=== PATIENT | male | born 1960 | race Caucasian/White ===

== ENCOUNTER → 2017-10-10 09:33 | Outpatient (CLI) | payer BC, SELFPAY | PROVIDERS: Visit Provider Internal Medicine | DX: I10 Essential (primary) hypertension (principal); E78.5 Hyperlipidemia, unspecified; I25.10 Atherosclerotic heart disease of native coronary artery without angina pectoris; Z95.5 Presence of coronary angioplasty implant and graft ==

== ENCOUNTER → 2017-11-14 10:32 | Outpatient (CLI) | payer BC, SELFPAY ==
[2017-11-14 13:16] LABS: Alanine Aminotransferase 78 U/L (12-78); Albumin Level 3.9 gm/dL (3.4-5.0); Alkaline Phosphatase 110 U/L (46-116); Aspartate Amino Transferase 46 U/L (15-37); Bilirubin,Direct 0.1 mg/dL (0.0-0.2); Bilirubin,Total 0.6 mg/dL (0.2-1.0); Chol/HDL Ratio 4.9 (1-3.5); Cholesterol 175 mg/dL (140-200); HDL Cholesterol 36 mg/dL (27-67); LDL Cholesterol 98 mg/dL (0-130); Total Protein,Serum 6.9 gm/dL (6.4-8.2); Triglycerides 204 mg/dL (30-200); VLDL Cholesterol 41 mg/dL (0-40)
== END ==
PROVIDERS: PCP Family Medicine; Visit Provider Internal Medicine
DX: I10 Essential (primary) hypertension (principal); I25.10 Atherosclerotic heart disease of native coronary artery without angina pectoris; Z87.891 Personal history of nicotine dependence; Z95.5 Presence of coronary angioplasty implant and graft; E78.4 Other hyperlipidemia
CPT/HCPCS: 36415; 80061; 80076

== ENCOUNTER → 2018-02-21 07:45 | Outpatient (CLI) | payer BC, SELFPAY ==
--- NOTE | 2018-02-21 07:50 | CT_ITS ---
LUNG RADS: EXAM: CT LUNG LOW DOSE WO CONTRAST COMPARISON: Chest film 10/16/2015 HISTORY: Smoke to PACS per day for 30 years equal 60 pack-year . Patient asymptomatic joint no signs or symptoms of lung cancer FINDINGS: No suspicious lung nodule or mass. Benign nodules(Category1)with perhaps 2 tiny indeterminate nodules (category 2).. Follow-up in one year adequate & recommended Most notable are scattered Small calcified granulomas bilaterally:. RIGHT LUNG..: Small 3 mm calcified granuloma axial slice 17, 18 on. Small less than 4 mm calcified granuloma slice 25 posterior R UL on right Axial slice 18.q Small probably partially calcified nodule 4 mm seen on sagittal slice 40, axial 49 at the medial RML LEFT LUNG. Tiny 3 mm probably partially calcified granuloma at lingula axial slice 61. ... Larger 4 mm calcified granuloma anterior L UL axial 42 sagittal 82. ... Small less than 3 mm tiny subpleural nodule axial slice 20. Nonspecific but suspect there may be some subtle early calcification in the suspect favor this is also a small developing granuloma.. Dense calcified granuloma 3.5 mm size is seen at left lung apex axial slice 16 is a small 3.5 mm. LUNG PARENCHYMA Emphysema: Mild centrilobular emphysematous changes . Small bleb at right apex anteriorly adjacent to mediastinum Mild airway thickening reflecting mild chronic airway changes likely mild chronic bronchitis. Airways upper normal diameter towards the lung bases. There are some scattered minimal areas of minor fibrotic scarring periphery the lungs most evident towards the right lung base. Subtle. Unimpressive OTHER ANATOMIC REGIONS Lymph Nodes: No enlarged lymph nodes evident. Scattered small nodes are present in the mediastinum and anel Scattered small to moderate mediastinal lymph nodes. No pathologic adenopathy. No hilar mass nor adenopathy of concern. Calcified left hilar nodes and small calcified precarinal, subcarinal nodes reflecting old granulomatous disease. Pleura: Unremarkable Cardiac: Heart normal size. There is extensive severe coronary artery calcification with likely stents in place as well left main LAD circumflex. Correlation required. . ---IMPRESSION: 1. No suspicious nor worrisome lung lesions. Bilateral follow-up screening CT and one year recommended 2. Lung RADS Category: 2 & 1 ... Scattered small calcified granulomas ... With perhaps - two tiny less than 4 mm nodules which are technically indeterminate but most likely developing granulomas given their relative increased density 3. Mild Emphysematous changes Minimal airway thickening, May reflect mild chronic bronchitis 4. Coronary artery disease.Fairly Extensive coronary calcification with likely stents RECOMMENDATIONS:*... 12 monthd LDCT follow-up ===== NOTE: This study was performed for the specific purposes of lung cancer screening and is not an alternative to diagnostic chest CT. TECHNIQUE: The exam was performed on a GE [facility] Speed [address] scanner using 3.0 mGy CTDI. A low dose helical CT CHEST was performed on a multi-detector scanner. All CT scans at this facility use one or more dose reduction techniques, viz.: automated exposure control; ma/kV adjustment per patient size (including targeted exams where dose is matched to indication; i.e. head) or iterative reconstruction technique. The LDCT was performed in a facility that meets the criteria for the screening program. Data regarding this exam was submitted to [employer] which is an approved registry. The order for this exam indicates that it came as a result of a lung cancer screening counseling shard decision-making visit that included all the elements required of such a visit including smoking cessation. The radiologist interpreting
== END ==
PROVIDERS: PCP Family Medicine; Visit Provider Family Medicine
DX: Z87.891 Personal history of nicotine dependence (principal); Z12.2 Encounter for screening for malignant neoplasm of respiratory organs

== ENCOUNTER 2018-05-24 17:30 | Outpatient (RCR) | payer BC, OTHER, SELFPAY | END 2018-05-24 17:31 | disposition home or self-care (01) | LOC: PT 17:30 | PROVIDERS: PCP Family Medicine; Visit Provider Internal Medicine | DX: Z95.5 Presence of coronary angioplasty implant and graft (principal) | CPT/HCPCS: 93798 ==

== ENCOUNTER → 2018-08-18 08:30 | Outpatient (CLI) | payer OTHER, SELFPAY ==
[2018-08-18 10:00] LABS: Alanine Aminotransferase 57 U/L (12-78); Albumin Level 4.1 gm/dL (3.4-5.0); Alkaline Phosphatase 109 U/L (46-116); Aspartate Amino Transferase 32 U/L (15-37); Bilirubin,Direct 0.2 mg/dL (0.0-0.2); Bilirubin,Indirect 0.7 mg/dL (0.0-0.9); Bilirubin,Total 0.9 mg/dL (0.2-1.0); Chol/HDL Ratio 4.3 (1-3.5); Cholesterol 142 mg/dL (140-200); HDL Cholesterol 33 mg/dL (27-67); LDL Cholesterol 76 mg/dL (0-130); Triglycerides 164 mg/dL (30-200); VLDL Cholesterol 33 mg/dL (0-40)
== END ==
PROVIDERS: PCP Family Medicine; Visit Provider Internal Medicine
DX: I10 Essential (primary) hypertension (principal); I25.10 Atherosclerotic heart disease of native coronary artery without angina pectoris; Z87.891 Personal history of nicotine dependence; Z95.5 Presence of coronary angioplasty implant and graft
CPT/HCPCS: 80061; 80076

== ENCOUNTER 2018-11-19 10:32 | Observation (INO) ==
[2018-11-19 10:52] LABS: Basophils # 0.1 K/mm3 (0-0.2); Basophils % 0.9 % (0.1-2.0); Eosinophils # 0.2 K/mm3 (0.0-0.4); Eosinophils % 1.6 % (0.1-12.0); Hematocrit 47.3 % (42.0-52.0); Lymphocytes # 3.3 K/mm3 (0.7-4.5); Lymphocytes % 28.8 % (10-50); Mean Corpuscular HGB Conc 33.8 g/dL (31.8-35.4); Mean Corpuscular Hemoglobin 30.5 pg (27.0-31.2); Mean Corpuscular Volume 90.4 fl (80-94); Mean Platelet Volume 7.8 fl (7.4-10.4); Monocytes # 0.5 K/mm3 (0.1-1.0); Monocytes % 4.7 % (1.7-9.3); Neutrophils # 7.3 K/mm3 (1.8-7.8); Platelet Count 231 K/mm3 (142-424); Red Blood Count 5.24 M/mm3 (4.60-6.20); Red Cell Distribution Width 12.4 % (11.5-17.5); White Blood Count 11.5 K/mm3 (4.8-10.8)
--- NOTE | 2018-11-19 10:57 | Emergency Department Note ---
ED Disposition Clinical Impression: Angina at rest, Chest pain, Atypical chest pain, Unstable angina pectoris, Stented coronary artery Disposition: Admitted as Observation Condition on Discharge: Good - Critical Care Critical Care Time: No Attestation: On 11/19/18, the high probability of a clinically significant, sudden or life threatening deterioration of the following system(s) required my full and direct attention, intervention and personal management. The time I documented below is in addition to time spent performing reported procedures but includes the following listed in this critical care notation. Medical Decision Making - Medical Records Medical records reviewed: Yes: I reviewed the patient's medical records. - Archie Inquiry Pt receiving controlled substance: No Vital Signs: 11/19/18 10:32 11/19/18 11:23 Temperature 98.8 F Temperature Source Oral Pulse Rate [Left Radial] 71 67 Respiratory Rate 18 Blood Pressure [Right Arm] 139/78 107/67 L Blood Pressure Mean [Right Arm] 98 80 Blood Pressure Source [Right Arm] Automatic Cuff Automatic Cuff Blood Pressure Position [Right Arm] Sitting Sitting 02 Sat by Pulse Oximetry 98 98 Oxygen Delivery Method Room Air Room Air - Lab Data Lab results reviewed: Yes: I reviewed the patient's lab results. Lab Results 11/19/18 10:35: WBC 11.5 H, RBC 5.24, Hgb 16.0, Hct 47.3, MCV 90.4, MCH 30.5, MCHC 33.8, RDW 12.4, Plt Count 231, MPV 7.8, Neut % (Auto) 64.0, Lymph % (Auto) 28.8, [place] % (Auto) 4.7, Eos % (Auto) 1.6, Baso % (Auto) 0.9, Neut # (Auto) 7.3, Lymph # (Auto) 3.3, [place] # (Auto) 0.5, Eos # (Auto) 0.2, Baso # (Auto) 0.1 11/19/18 10:35: Sodium 137, Potassium 4.1, Chloride 99, Carbon Dioxide 28, Anion Gap 14.1, BUN 20 H, Creatinine 1.23, Estimated Creat Clear 93, Estimated GFR 61, Est GFR ( Amer) 73, Glucose 129 H, Calcium 9.3, Troponin I < 0.02 11/19/18 10:35: Total Bilirubin 0.7, Direct Bilirubin 0.2, Indirect Bilirubin 0.5, AST 25, ALT 45, Alkaline Phosphatase 112, Total Protein 7.9, Albumin 4.4 Result diagrams: 11/19/18 10:35 11/19/18 10:35 Orders (Tests/Meds): ED MEDICATIONS Generic Name Dose Route Start Last Admin Trade Name Kareemq PRN Reason Stop Dose Admin Fentanyl Citrate 25 mcg 11/19/18 11:44 Fentanyl 250mcg/5ml Vial IV 11/20/18 11:44 Q3MINP PRN Moderate to Severe Pain Fentanyl Citrate 50 mcg 11/19/18 11:44 Fentanyl 250mcg/5ml Vial IV 11/20/18 11:44 Q3MINP PRN Moderate to Severe Pain Flumazenil 0.2 mg 11/19/18 11:44 Romazicon 0.1mg/Ml 5ml Vial IV 11/19/18 23:00 NEEDED PRN Sedation Midazolam HCl 1 mg 11/19/18 11:44 Midazolam 2mg/2ml Vial IV 11/20/18 11:44 Q3MINP PRN Sedation Midazolam HCl 1 mg 11/19/18 11:44 Midazolam 1mg/Ml 5ml Vial IV 11/20/18 11:44 Q3MINP PRN Sedation Naloxone HCl 0.4 mg 11/19/18 11:44 Narcan 0.4mg/Ml Vial IV 11/20/18 11:44 Q5MINP PRN Decreased respirations Sodium Chloride 10 ml 11/19/18 10:38 Saline Flush 10ml Syringe IV 12/19/18 10:37 NEEDED PRN Maintain IV Site Sodium Chloride 10 ml 11/19/18 11:44 Saline Flush 10ml Syringe IV 12/19/18 11:43 NEEDED PRN Maintain IV Site Discontinued Medications Generic Name Dose Route Start Last Admin Trade Name Kareemq PRN Reason Stop Dose Admin Aspirin 243 mg 11/19/18 10:39 11/19/18 10:42 Aspirin 81mg Chewable Tablet PO 11/19/18 10:40 243 mg ONCE ONE Administration ORDERS Category Date Time Status Consult to Cardiology [CONS] Routine Cons 11/19/18 11:55 Ordered Troponin I Q3H Lab 11/19/18 15:00 Ordered Troponin I Q3H Lab 11/19/18 18:00 Ordered - ECG Data Tracing #1 EKG normal sinus rhythm normal EKG heart rate 68 QRS 84 s axis is 74 EKG essentially unchanged from October 10, 2017 patient was asymptomatic at the time of the EKG ECG initial impression date: 11/19/18 ECG initial impression time: 10:35 Normal Sinus Rhythm: Yes - Core Measures Clinical Trial Participant: No AMI core measures followed: Yes (Patient given aspirin) Medical Decision Narrative: Patient with a strong history of coronary artery disease has several days of intermittent chest pain similar to his previous heart attack of 3 years ago now symptom-free differential diagnosis unstable angina, GERD, esophagitis, non- STEMI, musculoskeletal pain. Patient discussed with cardiology PA for Dr. Mosqueda it was elected that the patient will be admitted under his primary doctor Dr. Desai and go [facility] for further evaluation of his pain. Laboratory studies unremarkable General Adult HPI - General Chief complaint: Chest Pain Stated complaint: chest pain Time Seen by Provider: 11/19/18 10:35 Mode of Arrival: Ambulatory Source of Information: Patient (Patient complains of sharp substernal pain radiating to the right shoulder now relieved by 2 nitroglycerin. 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 He does have a history of GERD and takes medications for it. There was no dyspnea no shortness of breath and he is now pain-free) Limitations: No Limitations Description of Symptoms (Recalled from ER Triage Doc. by RN): Pt reports midsternal chest pain that was sharp in nature and felt like pressure. Pt reports pain radiated to his R shoulder and down his arm. Pt reports he has taken Nitroglycerin x2 and reports is pain free at this time. - History of Present Illness Location: chest Severity: moderate Exacerbating factors: none Associated symptoms: denies other symptoms - Related Data Home Medications Medication Instructions Recorded Confirmed gabapentin 600 mg tablet 600 mg PO TID 11/10/17 11/19/18 nitroglycerin 0.4 mg sublingual 0.4 mg SUBLINGUAL Q5M PRN 11/10/17 11/19/18 tablet Aspirin [Low Dose Aspirin EC] 81 mg PO DAILY 11/19/18 11/19/18 Clopidogrel Bisulfate [Plavix 75mg 75 mg PO QDAY 01/28/19 01/28/19 Tab] Furosemide [Furosemide 40MG tAB] 40 mg PO DAILY 11/19/18 11/19/18 Isosorbide Mononitrate [Imdur 30mg 30 mg PO QAM 11/19/18 11/19/18 ER tablet] Losartan Potassium [Cozaar] 100 mg PO DAILY 11/19/18 11/19/18 Metoprolol Succinate 50 mg PO DAILY 11/19/18 11/19/18 Rosuvastatin Calcium 40 mg PO DAILY 11/19/18 11/19/18 Spironolactone 50 mg PO DAILY 11/19/18 11/19/18 Allergies Allergy/AdvReac Type Severity Reaction Status Date / Time No Known Allergies Allergy Verified 08/21/18 08:54 [facility] History - Hepatitis A Screen Drug use history?: No High risk sexual behaviors?: No History of sexually transmitted infection?: No Currently employed?: No Childcare worker?: No Do you have indoor plumbing?: Yes Do you have electricity?: Yes Attestation statement:: This patient has been screened for Hepatitis A risk factors. I have reviewed the patient's past medical history: Yes Medical History: Reports:: Coronary Artery Disease, Hyperlipidemia, Hypertension Denies:: Cancer, Diabetes Mellitus Type 1, Diabetes Mellitus Type 2, Internal Pacemaker, MRSA, Seizures Other Medical History: Reports: Arthritis Other Surgeries: Yes: Other. No: Pacemaker Amputation: No Fractures: No - Social History Smoking Status: Former smoker Tobacco Type: cigarettes Alcohol Intake: never Substance Use Type: denies use Occupational Status: employed Housing: house Household Members: spouse - Psychiatric History Expresses thoughts of harming self/others: None Suicide Plan Description: No Plan Family Hx:: No significant family history ROS Obtained: Yes All systems reviewed & no additional complaints - Gastrointestinal Gastrointestingal: Reports: as per HPI, dyspepsia Physical Exam - General General appearance: alert, in no apparent distress (Patient asymptomatic at this time) - Head Head exam: atraumatic, normocephalic, normal inspection - Eye Eye exam: Present: normal appearance, PERRL, EOMI - ENT ENT exam: Present: normal exam, normal oropharynx, mucous membranes moist, TM's normal bilaterally, normal external ear exam - Neck Neck exam: Present: normal inspection, full ROM, trachea midline. Absent: meningismus, lymphadenopathy - Chest Chest inspection: Present: normal inspection, symmetric chest wall rise. A bsent: tenderness - Respiratory Respiratory exam: Present: normal lung sounds bilaterally. Absent: respiratory distress - Cardiovascular Cardiovascular exam: Present: regular rate, normal rhythm. Absent: JVD - Abdominal Exam Abdominal exam: Present: soft, normal bowel sounds. Absent: distention, tenderness, guarding - Extremities Exam Extremities exam: Present: normal inspection, full ROM, normal capillary refill. Absent: calf tenderness - Back Exam Back exam: Present: normal inspection. Absent: tenderness - Neurological Exam Neurological exam: Present: alert, oriented X3 - Psychiatric Psychiatric exam: Present: normal affect, normal mood - Skin Skin exam: Present: warm, dry, intact, normal color - Lymphatic Lymphatic Findings: no adenopathy
[2018-11-19 11:04] LABS: Anion Gap 14.1 mEq/L (5-15); Blood Urea Nitrogen 20 mg/dL (7-18); Calcium 9.3 mg/dL (8.5-10.1); Carbon Dioxide 28 mmol/L (21.0-32.0); Chloride 99 mmol/L (98-107); Glucose 129 mg/dL (74-106); Potassium 4.1 mmoL/L (3.5-5.1); Sodium 137 mmol/L (136-145)
[2018-11-19 11:25] LABS: Albumin Level 4.4 gm/dL (3.4-5.0); Bilirubin,Direct 0.2 mg/dL (0.0-0.2); Bilirubin,Indirect 0.5 mg/dL (0.0-0.9); Bilirubin,Total 0.7 mg/dL (0.2-1.0); Total Protein,Serum 7.9 gm/dL (6.4-8.2)
--- NOTE | 2018-11-19 11:31 | Consult Report ---
Addendum entered and electronically signed by KEV Craig 11/19/18 13:57: Cardiac cath shows patent stents of main arteries with branch disease of diagonal artery which is best treated medically. Normal LVEF with slightly elevated LVEDP at 20 mm Hg. Continue lasix and spironolactone along with metoprolol and isosorbide. Will add ranexa 500 mg BID for endothelial dysfunction. Tobacco cessation. OK for discharge home when ok with PCP. Follow up in 1-2 wks. Original Note: History of Present Illness Consult date: 11/19/18 Consult reason: chest pain Chief complaint: chest pain Additional Medical History:: 1. PAD A. History of stents to left iliac/femoral area 2. HTN, treated. 3. Hyperlipidemia, untreated 4. Tobacco use, previously 3 ppd for 20+ yrs, now 0.5 ppd. 5. Back pain with left leg sciatica 6. CAD A. MAMTA to LAD and RCA, 01/2016 B. MAMTA to LAD and Cx, 10/2016 C. Cardiac cath, 04/2018 ANGIOGRAPHIC RESULTS: 1. The left main artery has a stent in the ostial proximal mid distal segment which is widely patent with minimal in-stent restenosis. Toward the end of the procedure there was an ostial 50% stenosis which dampened during catheter insertion. Following the stent the left main artery was angiographically normal 2. The left anterior descending artery has a stent in the proximal segment which originates off the left main artery which is patent however has a 30% concentric in-stent restenotic area. The remaining mid LAD has mild 30% stenoses while the first diagonal artery is subtotally occluded 3. The circumflex artery is a nondominant yet still large vessel with an ostial 90% stenosis representing in-stent restenosis. The second obtuse marginal artery has 40% stenoses 4. The right coronary artery is a dominant vessel and has ostial 30% stenosis with stents in the proximal to mid segment which have multiple 30 and 40% concentric in-stent restenotic areas. The distal right coronary artery has long 30-40% stenosis 5. The CAST ventriculogram reveals normal 65% 6. The left ventricular end-diastolic pressure severely elevated at 30 mmHg IMPRESSION: Coronary artery disease as described above Successful reconstruction of the distal left main artery going into the proximal circumflex flexor artery critical disease reduced to 0% with 1 drug- eluting stent Successful angioplasty of the proximal LAD Successful stenting of the ostial left main artery hemodynamically severe disease used to 0% with 1 drug-eluting stent PLAN: 1. Dual antiplatelet therapy 2. Patient requires diuretics including Lasix and Aldactone in order to decrease LVEDP 3. Avoidance of tobacco products 4. Risk factor modification 5. Cardiac rehabilitation History of present illness: 58-year-old white male with known coronary artery disease and multiple coronary stents in the past presented to the emergency department for evaluation of chest pain. Patient states symptoms have been intermittent since Monday but not long lasting. Symptoms not particularly associated with exertion. This a.m. since onset substernally with radiation to the right shoulder and arm without relief. He did take 2 sublingual nitroglycerin at home with near resolution of symptoms. By the time he got to the emergency department symptoms had resolved. He was given 3 baby aspirin in the ER. Initial workup shows normal troponin and EKG sinus with no acute changes. Cardiology consult due to history of recent coronary stenting in April of last year. Patient currently pain-free at this time. He relates the symptoms this morning is similar to those he had prior to his most recent stenting in April 2018. [facility] History Medical History: Reports:: Coronary Artery Disease, Hyperlipidemia, Hypertension Denies:: Cancer, Diabetes Mellitus Type 1, Diabetes Mellitus Type 2, Internal Pacemaker, MRSA, Seizures Other Medical History: Reports: Arthritis Other Surgeries: Yes: Other. No: Pacemaker Amputation: No Fractures: No - *Social History Smoking Status: Former smoker Tobacco Type: cigarettes Alcohol Intake: never Substance Use Type: denies use Occupational Status: employed Housing: house Household Members: spouse Travel in the last 8 weeks: None - Psychiatric History Expresses thoughts of harming self/others: None Suicide Plan Description: No Plan *Family Hx:: No significant family history Meds Home Medications Medication Instructions Recorded Confirmed Type gabapentin 600 mg tablet 600 mg PO TID 11/10/17 11/19/18 History nitroglycerin 0.4 mg sublingual 0.4 mg SUBLINGUAL Q5M PRN 11/10/17 11/19/18 History tablet Aspirin [Low Dose Aspirin EC] 81 mg PO DAILY 11/19/18 11/19/18 History Clopidogrel Bisulfate [Plavix 75mg 75 mg PO QDAY 11/19/18 11/19/18 History Tab] Furosemide [Furosemide 40MG tAB] 40 mg PO DAILY 11/19/18 11/19/18 History Isosorbide Mononitrate [Imdur 30mg 30 mg PO QAM 11/19/18 11/19/18 History ER tablet] Losartan Potassium [Cozaar] 100 mg PO DAILY 11/19/18 11/19/18 History Metoprolol Succinate 50 mg PO DAILY 11/19/18 11/19/18 History Rosuvastatin Calcium 40 mg PO DAILY 11/19/18 11/19/18 History Spironolactone 50 mg PO DAILY 11/19/18 11/19/18 History Allergies Allergy/AdvReac Type Severity Reaction Status Date / Time No Known Allergies Allergy Verified 08/21/18 08:54 Review of Systems - *Cardiovascular Reports chest pain, Reports shortness of breath with activity - *Respiratory Reports shortness of breath with activity - *Gastrointestinal Denies abdominal pain, Denies loose stools - *Genitourinary Denies blood in urine Exam Vital signs and Labs for Last 24 Hours: Temp Pulse Resp BP Pulse Ox 98.8 F 67 18 107/67 L 98 11/19/18 10:32 11/19/18 11:23 11/19/18 10:32 11/19/18 11:23 11/19/18 11:23 Laboratory Results - last 24 hr 11/19/18 10:35: WBC 11.5 H, RBC 5.24, Hgb 16.0, Hct 47.3, MCV 90.4, MCH 30.5, MCHC 33.8, RDW 12.4, Plt Count 231, MPV 7.8, Neut % (Auto) 64.0, Lymph % (Auto) 28.8, [place] % (Auto) 4.7, Eos % (Auto) 1.6, Baso % (Auto) 0.9, Neut # (Auto) 7.3, Lymph # (Auto) 3.3, [place] # (Auto) 0.5, Eos # (Auto) 0.2, Baso # (Auto) 0.1 11/19/18 10:35: Sodium 137, Potassium 4.1, Chloride 99, Carbon Dioxide 28, Anion Gap 14.1, BUN 20 H, Creatinine 1.23, Estimated Creat Clear 93, Estimated GFR 61, Est GFR ( Amer) 73, Glucose 129 H, Calcium 9.3, Troponin I < 0.02 11/19/18 10:35: Total Bilirubin 0.7, Direct Bilirubin 0.2, Indirect Bilirubin 0.5, AST 25, ALT 45, Alkaline Phosphatase 112, Total Protein 7.9, Albumin 4.4 I & O for Last 24 hours: Intake & Output 11/16/18 11/17/18 11/18/18 11/19/18 11:59 11:59 11:59 11:59 Weight 218 lb - *Routine HEENT Exam Head: Present: normocephalic Eye: Present: EOMI, PERRL ENT: Present: mucous membranes moist - *Routine Neck Exam Present: supple. Absent: JVD, carotid bruit - *Routine Respiratory Exam Present: CTA bilaterally. Absent: accessory muscle use, rales, rhonchi, wheezes - *Routine Cardiovascular Exam Present: RRR. Absent: murmur, gallop, rubs - *Routine Abdominal Exam Present: soft. Absent: tenderness, distended, guarding - *Routine Extremities Exam Absent: edema, calf tenderness - *Routine Neurological Exam Present: alert, oriented X3, moving all extremities Assessment and Plan (1) Angina pectoris Current visit: No Status: Chronic Category: Medical Code(s): I20.9 - Angina pectoris, unspecified (2) Coronary arteriosclerosis Current visit: No Status: Chronic Category: Medical Code(s): I25.10 - Atherosclerotic heart disease of [place] coronary artery without angina pectoris (3) HLD (hyperlipidemia) Current visit: No Status: Chronic Qualifiers: Hyperlipidemia type: other hyperlipidemia Category: Medical Code(s): E78.5 - Hyperlipidemia, unspecified (4) Hypertensive disorder Current visit: No Status: Chronic Qualifiers: Hypertension type: essential hypertension Qualified Code(s): I10 - Essential (primary) hypertension Category: Medical Code(s): I10 - Essential (primary) hypertension (5) Stented coronary artery Current visit: No Status: Chronic Category: Surgical Code(s): Z95.5 - Presence of coronary angioplasty implant and graft - Assessment and plan all Dx Assessment and Plan for all problems:: 1. Due to recent coronary stenting of Left Main artery and now with recurrent chest pain on 2 anti-anginal medications, will plan to proceed with left heart cath today to re-assess CAD. 2. Further recommendations to follow.
[2018-11-19 12:12] LABS: Activated Partial Thrombo Time 23.4 seconds (23.6-34.0); INR 0.91 (0.9-1.1); Prothrombin Time 9.4 seconds (9.4-11.8)
--- NOTE | 2018-11-19 14:49 | History & Physical Report ---
*Admission Date: 11/19/18 *Chief complaint: Chest pain *History of present illness: Mr. Neumann is a 58-year-old white male with known coronary artery disease and multiple coronary stents in the past who presented to the emergency department for evaluation of chest pain. Patient stated his symptoms have been intermittent since Monday but not long lasting. Symptoms were not particularly associated with exertion. This a.m. chest pain since onset has been substernal with radiation to the right shoulder and arm without relief. He did take 2 sublingual nitroglycerin at home with near resolution of symptoms. By the time he got to the emergency department symptoms had resolved. He was given 3 baby aspirin in the ER. Initial workup shows normal troponin and EKG revealed sinus rhythm with no acute changes. Cardiology was consulted due to patient's history of recent coronary stenting in April of last year. Patient was pain-free at this time of exam. He related the symptoms this morning were similar to those he had prior to his most recent stenting in April 2018. Patient was evaluated by cardiology and taken to the [facility]. Cardiac cath showed patent stents of main arteries with branch disease of diagonal artery which is best treated medically. Normal LVEF with slightly elevated LVEDP at 20 mm Hg. Recommendations were as follows: Continue lasix and spironolactone along with metoprolol and isosorbide. Will add ranexa 500 mg BID for endothelial dysfunction. Tobacco cessation. OK for discharge home when ok with PCP. Follow up in 1-2 wks. [facility] History Medical History: Reports:: Coronary Artery Disease, Gastroesophageal Reflux Disease(GERD), Hyperlipidemia, Hypertension Denies:: Cancer, Diabetes Mellitus Type 1, Diabetes Mellitus Type 2, Internal Pacemaker, MRSA, Seizures Other Medical History: Reports: Arthritis Comment:: Low back pain and sciatica Other Surgeries: Yes: Coronary Stent, Other. No: Pacemaker Amputation: No Fractures: No Comment: Stenting of left leg artery 03/11/2010; heart cath 09/21/2010; stent of left leg 2010; heart cath and stent placement 10/31/2016; heart cath and 2 stents placed 05/11/2018 - *Social History Smoking Status: Former smoker Tobacco Type: cigarettes Alcohol Intake: never Substance Use Type: denies use Occupational Status: employed Housing: house Household Members: spouse Travel in the last 8 weeks: None - Psychiatric History Expresses thoughts of harming self/others: None Suicide Plan Description: No Plan *Family Hx:: Coronary Artery Disease, Diabetes, Hypertension, Stroke Review of Systems - Constitutional Denies body ache(s), Denies fever(s) - ENT Denies ear pain, Denies headache(s), Denies sore throat - *Cardiovascular Reports chest pain, Denies excessive sweating, Denies shortness of breath, Denies leg swelling - *Respiratory Denies chest congestion, Denies cough, Denies shortness of breath - *Gastrointestinal Denies abdominal pain, Denies constipation, Denies heartburn, Denies vomiting blood, Denies bright, red blood in stools, Denies black, tarry stools, Denies n ausea, Denies vomiting - *Musculoskeletal Denies joint pain - *Neurologic Denies dizziness, Denies seizure-like activity, Denies fainting Meds Home Medications Medication Instructions Recorded Confirmed Type gabapentin 600 mg tablet 600 mg PO TID 11/10/17 11/19/18 History nitroglycerin 0.4 mg sublingual 0.4 mg SUBLINGUAL Q5M PRN 11/10/17 11/19/18 History tablet Aspirin [Low Dose Aspirin EC] 81 mg PO DAILY 11/19/18 11/19/18 History Clopidogrel Bisulfate [Plavix 75mg 75 mg PO QDAY 11/19/18 11/19/18 History Tab] Furosemide [Furosemide 40MG tAB] 40 mg PO DAILY 11/19/18 11/19/18 History Isosorbide Mononitrate [Imdur 30mg 30 mg PO QAM 11/19/18 11/19/18 History ER tablet] Losartan Potassium [Cozaar] 100 mg PO DAILY 11/19/18 11/19/18 History Metoprolol Succinate 50 mg PO DAILY 11/19/18 11/19/18 History Rosuvastatin Calcium 40 mg PO DAILY 11/19/18 11/19/18 History Spironolactone 50 mg PO DAILY 11/19/18 11/19/18 History Allergies Allergy/AdvReac Type Severity Reaction Status Date / Time No Known Allergies Allergy Verified 08/21/18 08:54 Exam Vital signs and Labs for Last 24 Hours: Temp Pulse Resp BP Pulse Ox 97.7 F 61 18 135/80 98 11/19/18 13:41 11/19/18 14:37 11/19/18 14:37 11/19/18 14:37 11/19/18 14:37 Laboratory Results - last 24 hr 11/19/18 10:35: WBC 11.5 H, RBC 5.24, Hgb 16.0, Hct 47.3, MCV 90.4, MCH 30.5, MC HC 33.8, RDW 12.4, Plt Count 231, MPV 7.8, Neut % (Auto) 64.0, Lymph % (Auto) 28.8, [place] % (Auto) 4.7, Eos % (Auto) 1.6, Baso % (Auto) 0.9, Neut # (Auto) 7.3, Lymph # (Auto) 3.3, [place] # (Auto) 0.5, Eos # (Auto) 0.2, Baso # (Auto) 0.1 11/19/18 10:35: Sodium 137, Potassium 4.1, Chloride 99, Carbon Dioxide 28, Anion Gap 14.1, BUN 20 H, Creatinine 1.23, Estimated Creat Clear 93, Estimated GFR 61, Est GFR ( Amer) 73, Glucose 129 H, Calcium 9.3, Troponin I < 0.02 11/19/18 10:35: Total Bilirubin 0.7, Direct Bilirubin 0.2, Indirect Bilirubin 0.5, AST 25, ALT 45, Alkaline Phosphatase 112, Total Protein 7.9, Albumin 4.4 11/19/18 10:35: PT 9.4, INR 0.91, APTT 23.4 L I & O for Last 24 hours: Intake & Output 11/17/18 11/18/18 11/19/18 11/20/18 11:59 11:59 11:59 11:59 Weight 218 lb Radiology Reports for the Last 24 Hours: 11/19/2018 chest x-ray IMPRESSION: No acute finding 11/19/2018 cardiac catheterization ANGIOGRAPHIC RESULTS: 1. The left main artery has a stent in its ostial proximal mid distal segment which is widely patent with very minimal in-stent restenosis 2. The left anterior descending artery has a drug-eluting stent originating off the left main artery extending into its proximal segment. There is mild to moderate concentric in-stent restenosis with a 40% stenosis in the LAD immediately adjacent to the large first diagonal artery. The first diagonal artery is 2 mm in diameter and has an ostial 80-90% stenosis. Distal to the diagonal artery the LAD has 30% stenosis with remaining vessel normal 3. The circumflex artery nondominant with a drug-eluting stent originating off the left main artery which is widely patent free of in-stent restenosis with excellent transitioning into the [place] vessel. The first obtuse marginal artery has 30% mid vessel stenoses 4. The right coronary artery is a dominant vessel and has a stent in the proximal to mid segment. There are early percent diffuse in-stent restenotic lesions throughout the stent. The distal right coronary artery has 30-40% stenoses 5. The CAST ventriculogram reveals normal 65% 6. The left ventricular end-diastolic pressure 20 mmHg IMPRESSION: 1. Coronary artery disease as described above 2. Normal ejection fraction 3. Elevated LVEDP 4. Angina pectoris almost certainly stemming from the elevated LVEDP and endothelial dysfunction PLAN: 1. Continue standard therapy for ischemic heart disease 2. Maximize antianginal medications 3. Absolute avoidance of all tobacco products and second hand smoke 4. Addition of Ranexa and long-acting nitrate 5. Cardiac rehabilitation 6. Low-dose diuretics in order to decrease LVEDP - Constitutional no acute distress Comments: Lying flat in bed after cardiac cath. Appears comfortable. No acute distress; alert and oriented - *Routine HEENT Exam Head: Present: normocephalic, atraumatic Eye: Present: PERRL ENT: Present: mucous membranes moist, oropharynx clear - *Routine Neck Exam Absent: carotid bruit, lymphadenopathy, thyromegaly - *Routine Respiratory Exam Present: CTA bilaterally - *Routine Cardiovascular Exam Present: RRR - *Routine Abdominal Exam Present: soft, normoactive bowel sounds. Absent: tenderness - *Routine Extremities Exam Present: pulses intact. Absent: edema, calf tenderness - *Routine Neurological Exam Present: alert, oriented X3 Assessment and Plan (1) Angina pectoris Current visit: No Status: Chronic Category: Medical Code(s): I20.9 - Angina pectoris, unspecified (2) Coronary arteriosclerosis Current visit: No Status: Chronic Category: Medical Code(s): I25.10 - Atherosclerotic heart disease of [place] coronary artery without angina pectoris (3) HLD (hyperlipidemia) Current visit: No Status: Chronic Qualifiers: Hyperlipidemia type: other hyperlipidemia Qualified Code(s): E78.49 - Other hyperlipidemia; E78.4 - Other hyperlipidemia Category: Medical Code(s): E78.5 - Hyperlipidemia, unspecified (4) Hypertensive disorder Current visit: No Status: Chronic Qualifiers: Hypertension type: essential hypertension Qualified Code(s): I10 - Essential (primary) hypertension Category: Medical Code(s): I10 - Essential (primary) hypertension (5) Stented coronary artery Current visit: Yes Status: Chronic Category: Surgical Code(s): Z95.5 - Presence of coronary angioplasty implant and graft (6) GERD (gastroesophageal reflux disease) Current visit: Yes Status: Acute Category: Medical Code(s): K21.9 - Gastro-esophageal reflux disease without esophagitis - Assessment and plan all Dx Assessment and Plan for all problems:: Patient has had his cardiac cath with the following recommendations/plan: Continue lasix and spironolactone along with metoprolol and isosorbide. Will add ranexa 500 mg BID for endothelial dysfunction. Tobacco cessation. OK for discharge home when ok with PCP. Follow up in 1-2 wks.
--- NOTE | 2018-11-19 21:40 | Discharge Summary ---
General - General Admission date:: 11/19/18 Discharge date: 11/19/18 HPI HPI: Mr. Neumann is a 58-year-old white male with known coronary artery disease and multiple coronary stents in the past who presented to the emergency department for evaluation of chest pain. Patient stated his symptoms have been intermittent since Monday but not long lasting. Symptoms were not particularly associated with exertion. This a.m. chest pain since onset has been substernal with radiation to the right shoulder and arm without relief. He did take 2 sublingual nitroglycerin at home with near resolution of symptoms. By the time he got to the emergency department symptoms had resolved. He was given 3 baby aspirin in the ER. Initial workup shows normal troponin and EKG revealed sinus rhythm with no acute changes. Cardiology was consulted due to patient's history of recent coronary stenting in April of last year. Patient was pain-free at this time of exam. He related the symptoms this morning were similar to those he had prior to his most recent stenting in April 2018. Patient was evaluated by cardiology and taken to the [facility] Worker. Cardiac cath showed patent stents of main arteries with branch disease of diagonal artery which is best treated medically. Normal LVEF with slightly elevated LVEDP at 20 mm Hg. Recommendations were as follows: Continue lasix and spironolactone along with metoprolol and isosorbide. Will add ranexa 500 mg BID for endothelial dysfunction. Tobacco cessation. OK for discharge home when ok with PCP. Follow up in 1-2 wks. Hospital Course Hospital Course: Cardiology felt the patient would need to continue lasix and spironolactone along with metoprolol and isosorbide. They wanted to add ranexa 500 mg BID for endothelial dysfunction. They recommended tobacco cessation and felt the patient was ok for discharge home with a cardiology follow up in 1-2 wks. Objective Vital signs: Temp Pulse Resp BP Pulse Ox 97.7 F 64 18 117/61 95 11/19/18 13:41 11/19/18 18:30 11/19/18 18:30 11/19/18 18:30 11/19/18 18:30 Narrative: - Constitutional no acute distress Comments: Lying flat in bed after cardiac cath. Appears comfortable. No acute distress; alert and oriented - *Routine HEENT Exam Head: Present: normocephalic, atraumatic Eye: Present: PERRL ENT: Present: mucous membranes moist, oropharynx clear - *Routine Neck Exam Absent: carotid bruit, lymphadenopathy, thyromegaly - *Routine Respiratory Exam Present: CTA bilaterally - *Routine Cardiovascular Exam Present: RRR - *Routine Abdominal Exam Present: soft, normoactive bowel sounds. Absent: tenderness - *Routine Extremities Exam Present: pulses intact. Absent: edema, calf tenderness - *Routine Neurological Exam Present: alert, oriented X3 Results Labs on day of discharge: Labs from last 24 hours 11/19/18 11/19/18 11/19/18 18:00 15:00 10:35 WBC RBC Hgb Hct MCV MCH MCHC RDW Plt Count MPV Neut % (Auto) Lymph % (Auto) [place] % (Auto) Eos % (Auto) Baso % (Auto) Neut # (Auto) Lymph # (Auto) [place] # (Auto) Eos # (Auto) Baso # (Auto) PT 9.4 INR 0.91 APTT 23.4 L Sodium Potassium Chloride Carbon Dioxide Anion Gap BUN Creatinine Estimated Creat Clear Estimated GFR Est GFR ( Amer) Glucose Calcium Total Bilirubin Direct Bilirubin Indirect Bilirubin AST ALT Alkaline Phosphatase Troponin I < 0.02 < 0.02 Total Protein Albumin 11/19/18 11/19/18 11/19/18 10:35 10:35 10:35 WBC 11.5 H RBC 5.24 Hgb 16.0 Hct 47.3 MCV 90.4 MCH 30.5 MCHC 33.8 RDW 12.4 Plt Count 231 MPV 7.8 Neut % (Auto) 64.0 Lymph % (Auto) 28.8 [place] % (Auto) 4.7 Eos % (Auto) 1.6 Baso % (Auto) 0.9 Neut # (Auto) 7.3 Lymph # (Auto) 3.3 [place] # (Auto) 0.5 Eos # (Auto) 0.2 Baso # (Auto) 0.1 PT INR APTT Sodium 137 Potassium 4.1 Chloride 99 Carbon Dioxide 28 Anion Gap 14.1 BUN 20 H Creatinine 1.23 Estimated Creat Clear 93 Estimated GFR 61 Est GFR ( Amer) 73 Glucose 129 H Calcium 9.3 Total Bilirubin 0.7 Direct Bilirubin 0.2 Indirect Bilirubin 0.5 AST 25 ALT 45 Alkaline Phosphatase 112 Troponin I < 0.02 Total Protein 7.9 Albumin 4.4 DS: Diagnosis - Discharge Diagnosis (1) Angina pectoris Status: Chronic (2) Coronary arteriosclerosis Status: Chronic (3) HLD (hyperlipidemia) Status: Chronic (4) Hypertensive disorder Status: Chronic (5) Stented coronary artery Status: Chronic (6) GERD (gastroesophageal reflux disease) Status: Acute Discharge Plan - Patient Discharge Instructions ACTIVITY: Continue current activity DIET: low fat, low cholesterol Patient Instructions: Angina, DI for Surgical Site Infection - Follow up Plan Follow up with: Yeni Desai MD [Staff Physician] - 1 week Disposition: Home, Self-Detention Medications: Home Medications Medication Instructions Recorded Confirmed Type gabapentin 600 mg tablet 600 mg PO TID 11/10/17 11/19/18 History nitroglycerin 0.4 mg sublingual 0.4 mg SUBLINGUAL Q5M PRN 11/10/17 11/19/18 History tablet Aspirin [Low Dose Aspirin EC] 81 mg PO DAILY 11/19/18 11/19/18 History Clopidogrel Bisulfate [Plavix 75mg 75 mg PO QDAY 11/19/18 11/19/18 History Tab] Furosemide [Furosemide 40MG tAB] 40 mg PO DAILY 11/19/18 11/19/18 History Isosorbide Mononitrate [Imdur 30mg 30 mg PO QAM 11/19/18 11/19/18 History ER tablet] Losartan Potassium [Cozaar] 100 mg PO DAILY 11/19/18 11/19/18 History Metoprolol Succinate 50 mg PO DAILY 11/19/18 11/19/18 History Ranolazine [Ranexa 500mg ER tablet] 500 mg PO BID #60 tab.er.12h 11/19/18 Rx Rosuvastatin Calcium 40 mg PO DAILY 11/19/18 11/19/18 History Spironolactone 50 mg PO DAILY 11/19/18 11/19/18 History Prescriptions/Medication Reconciliation: New Ranolazine [Ranexa 500mg ER tablet] 500 mg PO BID #60 tab.er.12h Continue gabapentin 600 mg tablet 600 mg PO TID nitroglycerin 0.4 mg sublingual tablet 0.4 mg SUBLINGUAL Q5M PRN PRN Reason: Chest Pain Spironolactone 50 mg PO DAILY Rosuvastatin Calcium 40 mg PO DAILY Metoprolol Succinate 50 mg PO DAILY Losartan Potassium [Cozaar] 100 mg PO DAILY Isosorbide Mononitrate [Imdur 30mg ER tablet] 30 mg PO QAM Furosemide [Furosemide 40MG tAB] 40 mg PO DAILY Clopidogrel Bisulfate [Plavix 75mg Tab] 75 mg PO QDAY Aspirin [Low Dose Aspirin EC] 81 mg PO DAILY
== END 2018-11-19 18:51 | disposition home or self-care (01) ==
LOC: 2ND 10:32 → ER 10:32 → 2ND 13:00
PROVIDERS: ADMIT Family Medicine; ATTEND Family Medicine
CPT/HCPCS: 36415; 71020; 71046; 80048; 80076; 84484; 85025; 85610; 85730; 93005; 93458; 99152; 99282; C1725; C1769; G0378; J1644; Q9967

== ENCOUNTER → 2019-06-11 09:11 | Outpatient (CLI) | payer OTHER, SELFPAY ==
[2019-06-11 09:25] LABS: Basophils # 0.1 K/mm3 (0-0.2); Basophils % 1.2 % (0.1-2.0); Eosinophils # 0.3 K/mm3 (0.0-0.4); Eosinophils % 2.4 % (0.1-12.0); Hematocrit 42.8 % (42.0-52.0); Hemoglobin 14.7 g/dL (14.1-18.0); Lymphocytes # 3.4 K/mm3 (0.7-4.5); Lymphocytes % 32.6 % (10-50); Mean Corpuscular HGB Conc 34.3 g/dL (31.8-35.4); Mean Corpuscular Hemoglobin 30.2 pg (27.0-31.2); Mean Corpuscular Volume 87.9 fl (80-94); Mean Platelet Volume 7.1 fl (7.4-10.4); Monocytes # 0.6 K/mm3 (0.1-1.0); Monocytes % 5.4 % (1.7-9.3); Neutrophils % 58.4 % (37.0-80.0); Platelet Count 307 K/mm3 (142-424); Red Blood Count 4.87 M/mm3 (4.60-6.20); Red Cell Distribution Width 12.7 % (11.5-17.5); White Blood Count 10.3 K/mm3 (4.8-10.8)
[2019-06-11 10:02] LABS: Blood Urea Nitrogen 19 mg/dL (7-18); Calcium 9.1 mg/dL (8.5-10.1); Carbon Dioxide 28 mmol/L (21.0-32.0); Chloride 100 mmol/L (98-107); Creatinine,Serum 1.26 mg/dL (0.70-1.30); Estimated Glomerular Filt Rate 59 ml/min (>60); GFR (African American) 71 ML/MIN (>60); Glucose 147 mg/dL (74-106); Sodium 137 mmol/L (136-145)
== END ==
LOC: LAB 09:11
PROVIDERS: Visit Provider Internal Medicine
DX: Z95.5 Presence of coronary angioplasty implant and graft (principal)
CPT/HCPCS: 36415; 80048; 85025

== ENCOUNTER → 2019-08-26 15:01 | Outpatient (CLI) | payer OTHER, SELFPAY ==
--- NOTE | 2019-08-26 15:06 | US_ITS ---
PROCEDURE: US BREAST LT COMPLETE CLINICAL INDICATION: HYPERTROPHY OF BREAST COMPARISON: No exams were available for comparison FINDINGS: There is some subcutaneous edema noted. No definite gynecomastia apparent. No suspicious nodules and no cystic nodules evident. IMPRESSION: Mild subcutaneous edema. No discrete mass demonstrated Dictated by: Daniel Lizama MD 09/16/2019 19:23 Electronically signed by Daniel Lizama MD in [place] 09/16/2019 19:23
== END ==
PROVIDERS: PCP Family Medicine; Visit Provider Family Medicine
DX: N62 Hypertrophy of breast (principal)
CPT/HCPCS: 76641

== ENCOUNTER → 2019-11-02 09:34 | Outpatient (CLI) | payer OTHER, SELFPAY ==
[2019-11-02 11:59] LABS: Anion Gap 16.2 mEq/L (5-15); Blood Urea Nitrogen 18 mg/dL (7-18); Calcium 8.8 mg/dL (8.5-10.1); Carbon Dioxide 27 mmol/L (21.0-32.0); Chloride 99 mmol/L (98-107); Creatinine,Serum 1.09 mg/dL (0.70-1.30); Estimated Glomerular Filt Rate 69 ml/min (>60); GFR (African American) 84 ML/MIN (>60); Glucose 136 mg/dL (74-106); Potassium 4.2 mmoL/L (3.5-5.1); Sodium 138 mmol/L (136-145)
== END ==
LOC: LAB 09:35
PROVIDERS: Visit Provider Nurse Practitioner Family
DX: I10 Essential (primary) hypertension (principal); E78.5 Hyperlipidemia, unspecified; I25.10 Atherosclerotic heart disease of native coronary artery without angina pectoris; I73.9 Peripheral vascular disease, unspecified; K21.9 Gastro-esophageal reflux disease without esophagitis; N62 Hypertrophy of breast; R06.02 Shortness of breath; R25.2 Cramp and spasm; Z87.891 Personal history of nicotine dependence
CPT/HCPCS: 36415; 80048

== ENCOUNTER → 2019-11-12 09:28 | Outpatient (CLI) | payer OTHER, SELFPAY ==
--- NOTE | 2019-11-12 09:29 | US_ITS ---
APPROVED REPORT Exam Type: Ankle to Brachial Index Mysql Dba: RT Freddy(R) Indications Claudication: Rest Pain: PAD History of Smoking CAD Patient states he has 4 peripheral stents and 7 cardiac stents. Pressures/Indices Right Indices Left Indices Brachial 151.00 mmHg Brachial 145.00 mmHg Low Thigh 92.00 mmHg 0.61 Low Thigh 105.00 mmHg 0.70 Calf 96.00 mmHg 0.64 Calf 107.00 mmHg 0.71 Ankle(PT) 123.00 mmHg 0.81 Ankle(PT) 123.00 mmHg 0.81 Ankle(DP) 110.00 mmHg 0.73 Ankle(DP) 107.00 mmHg 0.71 Digit 93.00 mmHg 0.62 Digit 78.00 mmHg 0.52 Findings RT CAITLIN=0.8 LT CAITLIN=0.8 RT TBI=0.6 LT TBI=0.5 Diminished DP pulses bilaterally Diminished waveforms distally bilaterally Conclusion RT CAITLIN=0.8 LT CAITLIN=0.8 RT TBI=0.6 LT TBI=0.5 Diminished DP pulses bilaterally Diminished waveforms distally bilaterally Electronically signed by : Chriss Gonsales, 11/12/2019 17:27:45
== END ==
LOC: RT 09:29
PROVIDERS: PCP Family Medicine; Visit Provider Nurse Practitioner Family
DX: I73.9 Peripheral vascular disease, unspecified (principal); R25.2 Cramp and spasm
CPT/HCPCS: 93923

== ENCOUNTER → 2020-07-30 15:12 | Outpatient (CLI) | payer OTHER, SELFPAY ==
--- NOTE | 2020-07-30 15:15 | CT_ITS ---
PROCEDURE: CT LUNG SCREENING CLINICAL INDICATION: H/O NICOTINE DEPENDENCE former smoker quit 4 years ago 147 pack year smoking history COPD, CAD PRIOR 02/21/18 COMPARISON: CT LUNGSCREEN CT lung screening from 02/21/2018 TECHNIQUE: The exam was performed on a GE Light Speed [address] scanner using 2.90 mGy CTDI. A low dose helical CT CHEST was performed on a multi-detector scanner. All CT scans at the facility use one or more dose reduction, viz: automated exposure control, ma/kV adjustment per patient size (including targeted exams where dose is matched to indication, i.e. head), or iterative reconstruction technique. The LDCT was performed in a facility that meets the criteria for the screening program. Data regarding this exam was submitted to ACR which is an approved registry. The order for this exam indicates that it came as a result of a lung cancer screening counseling shard decision-making visit that included all the elements required of such a visit including smoking cessation. The radiologist interpreting this exam meets the [facility] criteria for the LDCT lung cancer screening program. The exam is reported using the Lung-RADS classification scale and reported to the ACR registry. NOTE: This study was performed for the specific purposes of lung cancer screening and is not an alternative to diagnostic chest CT. RADIATION DOSE: CTDI vol(CT dose Index-volume) = 2.90mG DLP (Dose Length Product) = 95.86 mGcm FINDINGS: COPD. Mild prominence of the interstitium. Old granulomatous disease. Scattered areas of scarring and/or atelectatic change which is increased compared to the previous exam. No suspicious pulmonary nodules are identified. OTHER FINDINGS: Gynecomastia noted. Severe coronary artery calcifications IMPRESSION: Lung-RADS Category 1 Negative Follow-up: Continue annual screening with LDCT in 12 months Dictated by: Daniel Lizama MD 08/02/2020 15:29 Daniel Lizama MD in [place] 08/02/2020 15:29
== END ==
PROVIDERS: PCP Family Medicine; Visit Provider Family Medicine
DX: Z87.891 Personal history of nicotine dependence (principal); Z12.2 Encounter for screening for malignant neoplasm of respiratory organs

== ENCOUNTER → 2020-08-29 08:10 | Outpatient (CLI) | payer OTHER, SELFPAY ==
[2020-08-29 08:44] LABS: Chol/HDL Ratio 4.2 (1-3.5); Cholesterol 160 mg/dl (140-200); HDL Cholesterol 38 mg/dl (40-60); Triglycerides 193 mg/dl (30-150); VLDL Cholesterol 39 mg/dL (0-40)
== END ==
LOC: LAB 08:10
PROVIDERS: Visit Provider Physician Assistant
DX: I25.10 Atherosclerotic heart disease of native coronary artery without angina pectoris (principal); E78.2 Mixed hyperlipidemia
CPT/HCPCS: 36415; 80061

== ENCOUNTER 2020-11-09 08:58 | Emergency (ER) | payer OTHER, SELFPAY ==
[2020-11-09 09:05] VITALS: BP 133/78; PULSE 84; RESP 16; TEMP 36.5; O2SAT 96; BMI 30.7
[2020-11-09 09:28] VITALS: BP 133/78; PULSE 84; RESP 16; TEMP 36.5; O2SAT 96
--- NOTE | 2020-11-09 09:29 | HMH.EDUTC ---
[facility] [place] Disposition Clinical Impression: Exposure to COVID-19 virus Disposition: Home, Self-Care Condition on Discharge: Good Instructions: DI for COVID-19 (Suspected or Confirmed ), Coronavirus Disease 2019, Preventing the Spread of Coronavirus Discharge Instructions Additional Instructions: *Monitor Temp, Over the counter Motrin or Tylenol as directed/as needed Tylenol every 4 hours and Motrin every 6 hours (as long as your family doctor has told you that you can take it) for fever or pain. and straight to ER if unable to lower temp less than 101.0 after medication given Follow up IMMEDIATELY for new or worsening symptoms or no Noticeable improvement over the next 48-72 hours. 911 for difficulty breathing or swallowing You were tested for today for COVID19 your test result should be back in the next 24-48 hours, you may call to the [facility] to see if your test results are back in the next 48 hours [phone] [facility] hours are 9am-9pm You was given a handout with instructions for Self Quarantine and Self isolation for while you wait on test results and what to do if they are positive If you are positive the Health Dept will be contacting you also Referrals: Yeni Desai MD [Primary Care Provider] - As needed Forms: Work/School Release Time of Disposition: 09:30 Medical Decision Making - Archie Inquiry Pt receiving controlled substance: No Archie was queried for this patient: No Vital Signs: 11/09/20 09:05 Temperature 97.7 F Temperature Source Oral Pulse Rate [Right Brachial] 84 Respiratory Rate 16 Blood Pressure [Right Arm] 133/78 Blood Pressure Mean [Right Arm] 96 Blood Pressure Source [Right Arm] Automatic Cuff Blood Pressure Position [Right Arm] Sitting 02 Sat by Pulse Oximetry 96 Oxygen Delivery Method Room Air Orders (Tests/Meds): ORDERS Category Date Time Status Covid-19 Nasal PCR ([facility]) Routine Lab 11/09/20 09:10 Received [facility] [place] HPI - General Stated complaint: covid order Time Seen by Provider: 11/09/20 09:29 Mode of Arrival: Ambulatory Source of Information: Patient Limitations: No Limitations Description of Symptoms (Recalled from Triage Doc. by RN): COVID TEST HEENT Symptoms (Recalled from RN notes): No Resp Symptoms (Recalled from RN notes): No Skin Symptoms (Recalled from RN notes): No MS Symptoms (Recalled from RN notes): No Functional Status (Recalled from RN notes): WNL - History of Present Illness Provider Complaint: Patient state that his was recently tested for COVID and was positive State that he has been around her but not having any symptoms States that his work wanted him to come in and get tested - Related Data Home Medications Medication Instructions Recorded Confirmed gabapentin 600 mg tablet 600 mg PO TID 11/10/17 08/03/20 nitroglycerin 0.4 mg sublingual 0.4 mg SUBLINGUAL Q5M PRN 11/10/17 08/03/20 tablet isosorbide dinitrate 30 mg tablet 30 mg PO DAILY tab 06/02/20 08/03/20 metformin 500 mg tablet 500 mg PO BID tab 06/02/20 08/03/20 Previous Rx's Medication Instructions Recorded rosuvastatin 40 mg tablet 40 mg PO DAILY #90 tab 08/29/19 metoprolol succinate 50 mg 50 mg PO DAILY #90 tab 01/13/20 tablet,extended release 24 hr furosemide 80 mg tablet 80 mg PO BID #60 tab 02/24/20 aspirin 81 mg tablet,delayed 81 mg PO DAILY #90 tab 05/27/20 release losartan 100 mg tablet 100 mg PO DAILY #90 tab 07/10/20 clopidogrel 75 mg tablet 75 mg PO QDAY #90 tab 07/22/20 Allergies Allergy/AdvReac Type Severity Reaction Status Date / Time spironolactone AdvReac Intermediate gynecomasti Verified 08/03/20 08:46 a - Worker's Comp Is this a Worker's Comp case?: No [facility] History - Hepatitis A Screen Drug use history?: No High risk sexual behaviors?: No History of sexually transmitted infection?: No Currently employed?: No Childcare worker?: No Do you have indoor plumbing?: Yes Do you have electricity?: Yes Attestation statement:: Hao grover
[2020-11-10 09:19] LABS: Covid-19 Nasal PCR Sendout P&C POSITIVE
--- NOTE | 2020-11-10 16:03 | PC.NURSE ---
pt notified of positive covid result
== END 2020-11-09 09:30 | disposition home or self-care (01) ==
PROVIDERS: Emergency Provider Nurse Practitioner; PCP Family Medicine
DX: U07.1 COVID-19 (principal); E11.9 Type 2 diabetes mellitus without complications; K21.9 Gastro-esophageal reflux disease without esophagitis; E78.5 Hyperlipidemia, unspecified; I10 Essential (primary) hypertension; I25.10 Atherosclerotic heart disease of native coronary artery without angina pectoris; Z87.891 Personal history of nicotine dependence; Z79.899 Other long term (current) drug therapy
CPT/HCPCS: 99202; G0463; U0003; U0004

== ENCOUNTER 2020-11-18 09:21 | Emergency (ER) | payer OTHER, SELFPAY ==
[2020-11-18 09:22] VITALS: BP 116/76; PULSE 84; RESP 18; TEMP 37.1; O2SAT 98; BMI 32.6
--- NOTE | 2020-11-18 09:57 | HMH.EDUTC ---
[facility] Disposition Clinical Impression: Encounter for laboratory testing for COVID-19 virus Disposition: Home, Self-Care Condition on Discharge: Good Instructions: DI for COVID-19 (Suspected or Confirmed ), Coronavirus Disease 2019, Preventing the Spread of Coronavirus Discharge Instructions Additional Instructions: You were tested for today for COVID19 your test result should be back in the next 24-48 hours, you may call to the [facility] to see if your test results are back in the next 48 hours [phone] [facility] hours are 9am-9pm You was given a handout with instructions for Self Quarantine and Self isolation for while you wait on test results and what to do if they are positive If you are positive the Health Dept will be contacting you also Referrals: Yeni Desai MD [Primary Care Provider] - As needed Forms: Work/School Release Time of Disposition: 09:58 Medical Decision Making - Archie Inquiry Pt receiving controlled substance: No Archie was queried for this patient: No Vital Signs: 11/18/20 09:22 Temperature 98.7 F Temperature Source Oral Pulse Rate [Left Radial] 84 Respiratory Rate 18 Blood Pressure [Right Arm] 116/76 Blood Pressure Mean [Right Arm] 89 Blood Pressure Source [Right Arm] Automatic Cuff Blood Pressure Position [Right Arm] Sitting 02 Sat by Pulse Oximetry 98 Oxygen Delivery Method Room Air Orders (Tests/Meds): ORDERS Category Date Time Status Covid-19 Nasal PCR Sendout P&C Stat Lab 11/18/20 09:26 Ordered [facility] HPI - General Stated complaint: wants retested for covid Time Seen by Provider: 11/18/20 09:57 Mode of Arrival: Ambulatory Source of Information: Patient Limitations: No Limitations Description of Symptoms (Recalled from Triage Doc. by RN): pt is wanting a retest for covid for work HEENT Symptoms (Recalled from RN notes): No Resp Symptoms (Recalled from RN notes): No Skin Symptoms (Recalled from RN notes): No MS Symptoms (Recalled from RN notes): No Functional Status (Recalled from RN notes): wnl - History of Present Illness Provider Complaint: Patient state that he recently tested positive for COVID States that he has completed his quarantine but work is requiring him to get retested Denies symptoms - Related Data Home Medications Medication Instructions Recorded Confirmed gabapentin 600 mg tablet 600 mg PO TID 11/10/17 08/03/20 nitroglycerin 0.4 mg sublingual 0.4 mg SUBLINGUAL Q5M PRN 11/10/17 08/03/20 tablet isosorbide dinitrate 30 mg tablet 30 mg PO DAILY tab 06/02/20 08/03/20 metformin 500 mg tablet 500 mg PO BID tab 06/02/20 08/03/20 Previous Rx's Medication Instructions Recorded rosuvastatin 40 mg tablet 40 mg PO DAILY #90 tab 08/29/19 metoprolol succinate 50 mg 50 mg PO DAILY #90 tab 01/13/20 tablet,extended release 24 hr furosemide 80 mg tablet 80 mg PO BID #60 tab 02/24/20 aspirin 81 mg tablet,delayed 81 mg PO DAILY #90 tab 05/27/20 release losartan 100 mg tablet 100 mg PO DAILY #90 tab 07/10/20 clopidogrel 75 mg tablet 75 mg PO QDAY #90 tab 07/22/20 Allergies Allergy/AdvReac Type Severity Reaction Status Date / Time spironolactone AdvReac Intermediate gynecomasti Verified 08/03/20 08:46 a - Worker's Comp Is this a Worker's Comp case?: No [facility] History - Hepatitis A Screen Drug use history?: No High risk sexual behaviors?: No History of sexually transmitted infection?: No Currently employed?: No Childcare worker?: No Do you have indoor plumbing?: Yes Do you have electricity?: Yes Attestation statement:: This patient has been screened for Hepatitis A risk factors. I have reviewed the patient's past medical history: Yes Medical History: Reports:: Coronary Artery Disease, Gastroesophageal Reflux Disease(GERD), Hyperlipidemia, Hypertension, Peripheral Artery Disease Denies:: Cancer, Diabetes Mellitus Type 1, Diabetes Mellitus Type 2, Internal Pacemaker, MRSA, Seizures Other Medical History: Reports: Arthritis Commen
[2020-11-18 10:23] VITALS: BP 116/76; PULSE 84; RESP 18; TEMP 37.1; O2SAT 98
[2020-11-19 10:19] LABS: Covid-19 Nasal PCR Sendout P&C POSITIVE
== END 2020-11-18 10:27 | disposition home or self-care (01) ==
PROVIDERS: Emergency Provider Nurse Practitioner; PCP Family Medicine
DX: U07.1 COVID-19 (principal); E11.9 Type 2 diabetes mellitus without complications; I25.10 Atherosclerotic heart disease of native coronary artery without angina pectoris; E78.5 Hyperlipidemia, unspecified; I10 Essential (primary) hypertension; I73.9 Peripheral vascular disease, unspecified; Z87.891 Personal history of nicotine dependence; Z79.899 Other long term (current) drug therapy
CPT/HCPCS: 99202; G0463; U0004

== ENCOUNTER → 2021-02-23 07:18 | Outpatient (CLI) | payer OTHER, SELFPAY ==
--- NOTE | 2021-02-23 | CA_ITS ---
APPROVED REPORT Exam: Exercise Treadmill Technologist: arcadio storey, Ht: 5 ft 10 in Wt: 212 lbs BSA: 2.14 m2 HR: 71 bpm Rhythm: NSR Indications: Angina Medical History Medications: Isosorbide,,,,, Metoprolol,,,,, Asa,,,,, Metformin,,,,, Gabapentin,,,,, Losartan,,,,, Lasix,,,,, CloPIdogrel,,,,, Nitroglycerin,,,,, RoSovastatin,,,,, Evolocumab,,,,, Allergies: spironolactone Cardiac Risk Factors: HTN, Hyperlipidemia, Diabetes (non-insulin), FHX of CAD, Smoking Stress Test Details Test: Harvey HR Resting HR: 68 bpm Max Heart Rate (APMHR): 161.166368 bpm Max HR Achieved: 117 bpm Target HR (85% APMHR): 136.618246 bpm % of APMHR: 72.67 Recovery HR: 101 bpm BP Resting BP: 139/78 mmHg Max BP: 185/83 mmHg Recovery BP: 150.0/80.0 mmHg ECG Resting ECG: NSR, right axis deviation Clinical Exercise duration: 07:01 min Highest Stage Achieved: Stage 3: 3.4 mph at 14% grade. Exercise capacity: 10.1 METs Stress ECG Conclusion Exercised for 7 min. on Harvey Protocol. No chest pain. No arrhythmia or ectopy. Allowing for motion artifact, the ST response to exercise within normal. Normal GXT to HR achieved (73% of PM). Blunted HR response on beta sixto. Images reported separately. Test Summary REST . . . . . . . Sitting REST . . . . . . . Standing REST 04:32 0.0 1.2 68 . 139/ 78 . . Stage 1 01:00 10.0 1.7 90 . . . . Stage 1 02:00 10.0 1.7 94 . . . . Stage 1 03:00 10.0 1.7 101 . 144/ 78 . . Stage 2 01:00 12.0 2.5 104 . . . . Stage 2 02:00 12.0 2.5 109 . . . . Stage 2 03:00 12.0 2.5 109 . 154/ 82 . . Stage 3 01:00 14.0 3.4 116 . . . . Stage 3 01:01 14.0 3.4 117 . . . Stop exercise at 07:01 RECOVERY 01:00 0.0 0.0 101 . . . . RECOVERY 02:00 0.0 0.0 96 . 150/ 80 . . RECOVERY 03:00 0.0 0.0 88 . 185/ 83 . . RECOVERY 04:00 0.0 0.0 89 . 169/ 87 . . RECOVERY 05:00 0.0 0.0 84 . 169/ 87 . . RECOVERY 05:30 0.0 0.0 82 . 152/ 81 . . Electronically signed by : Earl Collins, 02/23/2021 19:13:49
--- NOTE | 2021-02-23 07:18 | NM_ITS ---
APPROVED REPORT Exam: Nuclear Stress Test Indication: Chest pain, SOB, CAD, HTN, DM, High cholesterol, Former tobacco use, Family history Patient Location: Outpatient Stress Tech: Rita Mcintosh [place] Tech:Clau Ponce, ARRT, RT (R)(N) Ht: 5 ft 10 in Wt: 212 lbs HR: 71 bpm BP: 151/79 mmHg BSA: 2.14 m2 BMI: 30.4 History: Chest pain, SOB, CAD, HTN, DM, High cholesterol, Former tobacco use, Family history Procedure: Patient exercised on Harvey protocol 7:00 minutes and sec, resting heart rate 71 bpm, resting blood pressure 151/79 mmHg, with exercise maximum heart rate achived was 101 bpm which is 73 % of the maximum predicted heart rate and blood pressure was 185/83 mmHg. Test was stopped due to SOA and leg fatigue. Patient denied any complaint of chest pain. Patient has Adequate exercise capacity exercise capacity, achieved 10.1 METs of workload on treadmill, the blood pressure response to exercise was Adequate.. Electrocardiogram Resting electrocardiogram showed sinus rhythm, with exercise there is less than 1.[address] segment depression noted from the baseline EKG. The EKG portion of the exercise Myoview was nondiagnostic as patient did not achieve the target heart rate. Cardiac Stress and Resting SPECT Images: Cardiac Stress and Resting SPECT images were obtained using technetium 99m Myoview 32.6 mCi stress and 10.73 mCi at rest. Gated SPECT for analysis of segmental wall motion and calculation of the ejection fraction also done. Prone images were also obtained. Cardiac stress and resting SPECT images show uniform myocardial activity without segmental perfusion abnormality, computer derived ejection fraction is 49% with no regional wall motion abnormality, right ventricle is normal size and contractility. Conclusion: 1. The EKG portion of the exercise Myoview is nondiagnostic due to patient not achieving the target heart rate, patient has good exercise capacity achieved 10.1 METs of workload on treadmill, the blood pressure response to exercise was adequate. There was no exercise-induced chest discomfort. 2. No scintigraphic evidence of reversible ischemia seen at this level of exercise, computer derived ejection fraction is 49% with no regional wall motion abnormality, right ventricle is normal size and contractility. Electronically signed by : Earl Collins, 02/23/2021 19:29:21
--- NOTE | 2021-02-23 08:31 | HMH.ITSHM ---
Current Home Medications as stated by this patient Mckinley Neumann or credit and collections representative. []ROSUVASTATIN NITRO METOPROLOL METFORMIN LOSARTAN ASA ISOSORBIDE GABAPENTIN FUROSEMIDE EVOLOCUMAB CLOPIDOGREL
== END ==
LOC: RAD 07:18
PROVIDERS: PCP Family Medicine; Visit Provider Physician Assistant
DX: R06.02 Shortness of breath (principal); E78.2 Mixed hyperlipidemia; I10 Essential (primary) hypertension; I20.9 Angina pectoris, unspecified; I25.118 Atherosclerotic heart disease of native coronary artery with other forms of angina pectoris; I73.9 Peripheral vascular disease, unspecified; K21.9 Gastro-esophageal reflux disease without esophagitis; Z87.891 Personal history of nicotine dependence; Z95.5 Presence of coronary angioplasty implant and graft
CPT/HCPCS: 78452; 93017; A9502

== ENCOUNTER → 2021-02-27 07:32 | Outpatient (CLI) | payer OTHER, SELFPAY ==
[2021-02-27 09:02] LABS: Alanine Aminotransferase 65 U/L (12-78); Albumin Level 4.8 g/dl (3.5-5.0); Alkaline Phosphatase 95 U/L (38-126); Aspartate Amino Transferase 53 U/L (17-59); Bilirubin,Direct 0.2 mg/dl (0.0-0.4); Bilirubin,Indirect 0.7 mg/dL (0.0-0.9); Bilirubin,Total 0.9 mg/dl (0.2-1.3); Bilirubin,Unconjugated 0.7 mg/dL (0.0-1.1); Chol/HDL Ratio 2.9 (1-3.5); Cholesterol 109 mg/dl (140-200); HDL Cholesterol 38 mg/dl (40-60); Total Protein,Serum 7.2 g/dl (6.3-8.2); Triglycerides 174 mg/dl (30-150); VLDL Cholesterol 35 mg/dL (0-40)
== END ==
LOC: LAB 07:32
PROVIDERS: Visit Provider Physician Assistant
DX: E78.2 Mixed hyperlipidemia (principal); I11.9 Hypertensive heart disease without heart failure; I20.9 Angina pectoris, unspecified; I25.118 Atherosclerotic heart disease of native coronary artery with other forms of angina pectoris; I73.9 Peripheral vascular disease, unspecified; K21.9 Gastro-esophageal reflux disease without esophagitis; R06.02 Shortness of breath; Z87.891 Personal history of nicotine dependence; Z95.5 Presence of coronary angioplasty implant and graft; E11.9 Type 2 diabetes mellitus without complications; Z79.84 Long term (current) use of oral hypoglycemic drugs
CPT/HCPCS: 36415; 80061; 80076

== ENCOUNTER 2021-04-18 13:04 | Emergency (ER) | payer OTHER, SELFPAY ==
[2021-04-18] VITALS (10 sets, daily range): BP systolic 102–160; BP diastolic 54–95; PULSE 67–84; RESP 9–18; TEMP 36.7–36.8; O2SAT 95–98; BMI 29.7
--- NOTE | 2021-04-18 13:01 | ECG_ITS ---
APPROVED REPORT Exam: Resting ECG HR:87 bpm ECG Measurements Heart Rate 87 AXES RI 136 P 55 QRSd 86 QRS 82 QT 376 T 42 QTc 452 Conclusion Normal sinus rhythm Normal ECG Electronically signed by : Dale Blankenship, 04/19/2021 17:32:37
--- NOTE | 2021-04-18 13:13 | HMH.EDGENADL ---
ED Disposition Clinical Impression: Syncope and collapse Chest pain Qualifiers: Chest pain type: unspecified Qualified Code(s): R07.9 - Chest pain, unspecified Disposition: Home, Self-Care Condition on Discharge: Good Instructions: DI for Syncope in Adults (Fainting), DI for Chest Pain Additional Instructions: Follow-up with Dr. Mosqueda tomorrow, call tomorrow morning at 9 AM. Return to the emergency department if fainting or chest pain returns. Follow-up with primary care doctor for recheck of white blood cell count and further evaluation. Referrals: Emerson Oakes PA [Primary Care Provider] - - Critical Care Critical Care Time: No Attestation: On , the high probability of a clinically significant, sudden or life threatening deterioration of the following system(s) required my full and direct attention, intervention and personal management. The time I documented below is in addition to time spent performing reported procedures but includes the following listed in this critical care notation. Medical Decision Making - Medical Records Medical records reviewed: Yes: I reviewed the patient's medical records. MR Comment: Reviewed results of most recent stress test/Myoview, cardiac catheterization, see below - Archie Inquiry Pt receiving controlled substance: No Vital Signs: 04/18/21 13:04 04/18/21 13:31 04/18/21 13:58 Temperature 98.3 F Temperature Source Oral Pulse Rate 77 68 Pulse Rate [Left] 84 Pulse Rate [Orthostatic Lying Right] Pulse Rate [Orthostatic Sitting Right] Pulse Rate [Orthostatic Standing Right] Respiratory Rate 14 16 9 L Blood Pressure 103/54 L 121/74 Blood Pressure [Orthostatic Lying Right Arm] Blood Pressure [Orthostatic Sitting Right Arm] Blood Pressure [Orthostatic Standing Right Arm] Blood Pressure [Right Arm] 139/64 Blood Pressure Mean [Right Arm] 89 Blood Pressure Position [Right Arm] Supine 02 Sat by Pulse Oximetry 98 95 97 04/18/21 14:00 04/18/21 14:01 04/18/21 14:26 Temperature Temperature Source Pulse Rate 67 80 Pulse Rate [Left] Pulse Rate [Orthostatic Lying Right] 81 Pulse Rate [Orthostatic Sitting Right] 80 Pulse Rate [Orthostatic Standing Right] 76 Respiratory Rate 13 11 L Blood Pressure 109/67 L 110/62 Blood Pressure [Orthostatic Lying Right Arm] 109/62 L Blood Pressure [Orthostatic Sitting Right Arm] 102/67 L Blood Pressure [Orthostatic Standing Right Arm] 110/62 Blood Pressure [Right Arm] Blood Pressure Mean [Right Arm] Blood Pressure Position [Right Arm] 02 Sat by Pulse Oximetry 97 95 04/18/21 14:35 04/18/21 15:00 04/18/21 15:31 Temperature Temperature Source Pulse Rate 75 68 72 Pulse Rate [Left] Pulse Rate [Orthostatic Lying Right] Pulse Rate [Orthostatic Sitting Right] Pulse Rate [Orthostatic Standing Right] Respiratory Rate 12 17 12 Blood Pressure 125/77 109/61 L 160/95 H Blood Pressure [Orthostatic Lying Right Arm] Blood Pressure [Orthostatic Sitting Right Arm] Blood Pressure [Orthostatic Standing Right Arm] Blood Pressure [Right Arm] Blood Pressure Mean [Right Arm] Blood Pressure Position [Right Arm] 02 Sat by Pulse Oximetry 95 96 97 - Lab Data Lab Results 04/18/21 13:05: WBC 16.5 H, RBC 5.12, Hgb 15.3, Hct 42.7, MCV 83.5, MCH 29.9, MCHC 35.8 H, RDW 13.6, Plt Count 253, MPV 7.7, Neut % (Auto) 64.4, Lymph % (Auto) 27.0, Victoria % (Auto) 5.2, Eos % (Auto) 2.3, Baso % (Auto) 1.1, Neut # (Auto) 10.6 H, Lymph # (Auto) 4.5, Victoria # (Auto) 0.9, Eos # (Auto) 0.4, Baso # (Auto) 0.2, Total Counted 100, Neutrophils % (Manual) 61, Lymphocytes % (Manual) 32, Monocytes % (Manual) 6, Eosinophils % (Manual) 1, Platelet Estimate Normal, RBC Morphology Normal 04/18/21 13:05: Sodium 139, Potassium 3.8, Chloride 99, Carbon Dioxide 22, Anion Gap 21.8 H, BUN 19, Creatinine 1.60 H, Estimated Creat Clear 66, Estimated GFR 44 L, Est GFR ( Amer) 54 L, Glucose 138 H, Calc
--- NOTE | 2021-04-18 13:29 | XR_ITS ---
PROCEDURE INFORMATION: Exam: XR Chest Exam date and time: 04/18/2021 1:29 PM Age: 60 years old Clinical indication: Other: Passed out due to chest pain; Patient HX: Chest pain, passed out, smoker. ; Additional info: Cp TECHNIQUE: Imaging protocol: XR of the chest. Views: 1 view. COMPARISON: CR CXR2V XR chest 2V 11/19/2018 10:47 AM FINDINGS: Lungs: Unremarkable. No consolidation. Pleural spaces: Unremarkable. No pleural effusion. No pneumothorax. Heart/Mediastinum: Unremarkable. No cardiomegaly. Bones/joints: Unremarkable. IMPRESSION: No acute findings.
[2021-04-18 13:33] LABS: Basophils # 0.2 K/mm3 (0-0.2); Basophils % 1.1 % (0.1-2.0); Eosinophils # 0.4 K/mm3 (0.0-0.4); Eosinophils % 2.3 % (0.1-12.0); Hematocrit 42.7 % (42.0-52.0); Hemoglobin 15.3 g/dL (14.1-18.0); Lymphocytes # 4.5 K/mm3 (0.7-4.5); Mean Corpuscular HGB Conc 35.8 g/dL (31.8-35.4); Mean Corpuscular Hemoglobin 29.9 pg (27.0-31.2); Mean Corpuscular Volume 83.5 fl (80-94); Mean Platelet Volume 7.7 fl (7.4-10.4); Monocytes # 0.9 K/mm3 (0.1-1.0); Monocytes % 5.2 % (1.7-9.3); Neutrophils # 10.6 K/mm3 (1.8-7.8); Neutrophils % 64.4 % (37.0-80.0); Platelet Count 253 K/mm3 (142-424); Red Blood Count 5.12 M/mm3 (4.60-6.20); Red Cell Distribution Width 13.6 % (11.5-17.5); White Blood Count 16.5 K/mm3 (4.8-10.8)
[2021-04-18 13:34] LABS: MANUAL DIFFERENTIAL MANUAL DIFFERENTIAL (MANUAL DIFF)
--- NOTE | 2021-04-18 13:35 | PC.NURSE ---
Rad at bedside
[2021-04-18 13:38] LABS: Chloride 99 mmol/L (98-107); Potassium 3.8 mmoL/L (3.5-5.1); Sodium 139 mmol/L (136-145)
[2021-04-18 13:41] LABS: Anion Gap 21.8 mEq/L (5-15); Blood Urea Nitrogen 19 mg/dl (9-20); Carbon Dioxide 22 mmol/L (22.0-30.0); Creatinine Clearance Estimated 66 mL/min (50-200); Eosinophils % 1 % (0-3); Estimated Glomerular Filt Rate 44 ml/min (>60); GFR (African American) 54 ML/MIN (>60); Lymphocytes % 32 % (10-50); Monocytes % 6 % (2-9); Neutrophils % 61 % (42-76); Platelet Estimate Normal; RBC Morphology Normal; Total Cells Counted 100
[2021-04-18 13:42] LABS: Calcium 9.6 mg/dl (8.4-10.2); Glucose 138 mg/dl (74-100)
[2021-04-18 13:55] LABS: Troponin I < 0.01 ng/ml (0.00-0.034)
--- NOTE | 2021-04-18 14:34 | PC.NURSE ---
Pt unable to urinate at this time.
[2021-04-18 14:51] LABS: Lactic Acid 1.9 mmol/L (0.7-2.1)
--- NOTE | 2021-04-18 15:11 | PC.NURSE ---
Pt states that he does not have to urinate at this time. Firmly states that he will not get a cath urine by staff. Urinal given to pt at this time and instructed that a urine sample is needed.
== END 2021-04-18 16:12 | disposition home or self-care (01) ==
PROVIDERS: Emergency Provider Emergency Medicine; PCP Physician Assistant
DX: R55 Syncope and collapse (principal); R07.9 Chest pain, unspecified; E11.9 Type 2 diabetes mellitus without complications; I25.10 Atherosclerotic heart disease of native coronary artery without angina pectoris; K21.9 Gastro-esophageal reflux disease without esophagitis; E78.5 Hyperlipidemia, unspecified; I10 Essential (primary) hypertension; Z79.899 Other long term (current) drug therapy
CPT/HCPCS: 71045; 80048; 83605; 84484; 85007; 85025; 87040; 93005; 96365; 96366; 99282

== ENCOUNTER → 2021-05-06 07:17 | Outpatient (CLI) | payer OTHER, SELFPAY ==
[2021-05-06 07:54] LABS: Alanine Aminotransferase 65 U/L (12-78); Albumin Level 4.3 g/dl (3.5-5.0); Alkaline Phosphatase 99 U/L (38-126); Aspartate Amino Transferase 47 U/L (17-59); Bilirubin,Direct 0.4 mg/dl (0.0-0.4); Bilirubin,Indirect 0.6 mg/dL (0.0-0.9); Bilirubin,Unconjugated 0.6 mg/dL (0.0-1.1); Cholesterol 75 mg/dl (140-200); HDL Cholesterol 38 mg/dl (40-60); Total Protein,Serum 6.6 g/dl (6.3-8.2); Triglycerides 150 mg/dl (30-150); VLDL Cholesterol 30 mg/dL (0-40)
[2021-05-06 08:09] LABS: Direct LDL Cholesterol < 30.00 mg/dL (100-129)
== END ==
LOC: LAB 07:17
PROVIDERS: Visit Provider Physician Assistant
DX: I25.118 Atherosclerotic heart disease of native coronary artery with other forms of angina pectoris (principal); I73.9 Peripheral vascular disease, unspecified; I10 Essential (primary) hypertension; E78.2 Mixed hyperlipidemia; Z95.5 Presence of coronary angioplasty implant and graft
CPT/HCPCS: 36415; 80061; 80076

== ENCOUNTER → 2021-12-14 07:48 | Outpatient (CLI) | payer OTHER, SELFPAY ==
--- NOTE | 2021-12-14 07:51 | CA_ITS ---
APPROVED REPORT EXAM: Comprehensive 2D, Doppler, and color-flow Echocardiogram [employer] Bak[employer] Laborer: Penny Segundo RT(R) Ht: 5 ft 11 in Wt: 215lbs BSA: 2.17 BP: 130/64 mmHg Indications: SOA, HTN, edema, hyperlipidemia, CAD, GERD, ex smoker, PAD, 7 cardiac stents, 4 peripheral stents 2D Dimensions LVOT 2.26 cm (M/F) 1.5-2.5 LA Volume 26.10 mL LA Volume Index 12.00 mL/m2 (M/F) 16-34 M-Mode Dimensions RVDd 1.74 cm (0.9-2.6) LA Diam 3.93 cm (1.9-4.0) LVDd 5.23 cm (3.5-5.7) Ao Diam 2.17 cm (2.0-3.7) LVDs 3.83 cm (3.5-5.7) IVSd 0.53 cm (0.6-1.1) PWd 0.80 cm (0.6-1.1) EF (Teich) 51.90% FS 26.80% EDV (Teich) 131.20 mL ESV (Teich) 63.10 mL LV Diastology E Decel Time 253.00 (160-240 msec) E/A Ratio 1.22 MED E' 6.20 (< 7 cm/sec) E'/MED E' Ratio 10.85 (>14) LAT E' 9.70 (<10 cm/sec) E/LAT E' Ratio 6.94 (>14) Mitral Valve MV E Max Jeffery. 67.00 (40-130 cm/s) MV A Velocity 55.00 (40-130 cm/s) E/A Ratio 1.22 MV Decel. Time 253.00 (160-240 ms) MV PHT 74.00 ms Left Ventricle Left atrium is mildly enlarged, left ventricle is normal size, mild concentric left ventricular hypertrophy, visually estimated ejection fraction 50% with no regional wall motion abnormality diastolic parameters are inconclusive. Right Ventricle Right atrium and right ventricle are normal size and contractility. Aortic Valve Aortic valve is minimally thickened and fibrosed, there is no aortic stenosis or aortic insufficiency. Mitral Valve Mitral valve is grossly normal, mild mitral regurgitation. Tricuspid Valve Tricuspid grossly normal, there is mild tricuspid regurgitation, tricuspid regurgitation jet velocity is inadequate for calculation of the right ventricular systolic pressure. Pulmonic Valve Pulmonic valve is poorly visualized. Great Vessels Aortic root is normal size. Inferior vena cava is poorly visualized. Pericardium No significant pericardial effusion noted. Conclusion 1. Mildly enlarged left atrium, normal left ventricular size, mild concentric left ventricular hypertrophy, visually estimated ejection fraction 50% with no obvious regional wall motion abnormality, diastolic parameters are inconclusive. 2. Mild mitral and tricuspid regurgitation. 3. No significant pericardial effusion. 4. Inferior vena cava is poorly visualized. Electronically signed by : Earl Collins MD 12/14/2021 20:35:12
== END ==
LOC: RT 07:49
PROVIDERS: PCP Family Medicine; Visit Provider Physician Assistant
DX: R06.00 Dyspnea, unspecified (principal); I25.118 Atherosclerotic heart disease of native coronary artery with other forms of angina pectoris; I10 Essential (primary) hypertension; E78.2 Mixed hyperlipidemia; I73.9 Peripheral vascular disease, unspecified; R60.0 Localized edema; Z95.5 Presence of coronary angioplasty implant and graft
CPT/HCPCS: 93306

== ENCOUNTER → 2022-01-12 06:15 | Outpatient (CLI) | payer OTHER, SELFPAY ==
--- NOTE | 2022-01-12 06:16 | NM_ITS ---
APPROVED REPORT Exam: Nuclear Stress Test Indication: Chest pain, SOB, CAD, Hx of [place], HTN, DM, High cholesterol, Former tobacco use, Family history Patient Location: Outpatient Stress Tech: Enedelia Haile PA Tech:Clau Ponce, ARRT, RT (R)(N) Ht: 5 ft 9 in Wt: 210 lbs HR: 57 bpm BP: 140/79 mmHg BSA: 2.11 m2 BMI: 31.0 History: Chest pain, SOB, CAD, Hx of [place], HTN, DM, High cholesterol, Former tobacco use, Family history Procedure: Patient exercised on Harvey protocol 7:00 minutes and sec, resting heart rate 57 bpm, resting blood pressure 140/79 mmHg, with exercise maximum heart rate achived was 113 bpm which is 71 % of the maximum predicted heart rate and blood pressure was 186/80 mmHg. Test was stopped due to SOA and leg pain. Patient denied any complaint of chest pain. Patient has good exercise capacity, achieved 10.1 METs of workload on treadmill, the blood pressure response to exercise was Adequate. Electrocardiogram Resting electrocardiogram shows sinus rhythm, with exercise there is less than 1.[address] segment depression noted from the baseline EKG. The EKG portion of the exercise Myoview is nondiagnostic as patient did not achieve the target heart rate. Cardiac Stress and Resting SPECT Images: Cardiac Stress and Resting SPECT images were obtained using technetium 99m Myoview 31.8 mCi stress and 10.82 mCi at rest. Gated SPECT for analysis of segmental wall motion and calculation of the ejection fraction also done. Cardiac stress and resting SPECT images show small area of reversible ischemia involving the posterior basal wall, computer derived ejection fraction is 55% with no regional wall motion abnormality, right ventricle is normal size and contractility. Conclusion: 1. The EKG portion of the exercise Myoview was nondiagnostic as patient did not achieve the target heart rate, patient has good exercise capacity achieved 10.1 METs of workload on treadmill, the blood pressure response to exercise was adequate, there was no exercise-induced chest discomfort. 2. Scintigraphic evidence of small reversible ischemia involving the posterior basal wall, computer derived ejection fraction is 55% with no regional wall motion abnormality, right ventricle is normal size and contractility. 3. Abnormal exercise Myoview study. Electronically signed by : Earl Collins MD 01/12/2022 19:32:40
--- NOTE | 2022-01-12 06:16 | CA_ITS ---
APPROVED REPORT Exam: Exercise Treadmill Technologist: Enedelia Haile Ht: 5 ft 11 in Wt: 210 lbs BSA: 2.15 m2 HR: 57 bpm BP: 140/79 mmHg Indications: Shortness of Breath, CAD, Abnormal EKG Medical History Medications: Isosorbide,,,,, Aspirin,,,,, Metoprolol,,,,, Metformin,,,,, Gabapentin,,,,, Losartan,,,,, CloPIdogrel,,,,, Nitroglycerin,,,,, JaRDiance,,,,, RoSUVASTATIN,,,,, Evolocumab,,,,, Furosemide,,,,, Stress Test Details Test: Harvey HR Resting HR: 64 bpm Max Heart Rate (APMHR): 160.906167 bpm Max HR Achieved: 114 bpm Target HR (85% APMHR): 136.871941 bpm % of APMHR: 71.25 Recovery HR: 69 bpm BP Resting BP: 140.0/79.0 mmHg Max BP: 186.0/80.0 mmHg Recovery BP: 151.0/70.0 mmHg ECG Resting ECG: Sinus bradycardia, rightward axis Clinical Exercise duration: 07:00 min Highest Stage Achieved: Exercise capacity: 10.1 METs Stress ECG Conclusion Patient exercised 7:00 into stage III of Harvey Protocol. Test stopped due to shortness of air, leg pain/claudication. Symptoms: No chest pain. Positive leg claudication and dyspnea. Arrythmias/Ectopy: Occasional PVC ST-T Changes: Normal ST response to exercise. Conclusion: Normal GXT to heart rate achieved (only to 71% of PM). LE claudication with exercise. Blunted heart rate response on metoprolol. Myoview images reported separately. Test Summary RECOVERY 04:00 0.0 0.0 74 . 151/ 71 . . REST . . . . . . . Standing REST 04:24 0.0 0.0 64 . 140/ 79 . . Stage 1 01:00 10.0 1.7 83 . . . . Stage 1 02:00 10.0 1.7 89 . . . . Stage 1 03:00 10.0 1.7 92 . 164/ 78 . . Stage 2 01:00 12.0 2.5 101 . . . . Stage 2 02:00 12.0 2.5 105 . . . . Stage 2 . . . . . . . Myoview Injected Stage 2 03:00 12.0 2.5 106 . 186/ 80 . . Stage 3 01:00 14.0 3.4 113 . . . Stop exercise at 07:00 RECOVERY 01:00 0.0 0.0 100 . . . . RECOVERY 02:00 0.0 0.0 85 . 131/ 83 . . RECOVERY 03:00 0.0 0.0 83 . 131/ 83 . . RECOVERY 04:00 0.0 0.0 74 . 151/ 71 . . RECOVERY 05:00 0.0 0.0 69 . 151/ 71 . . RECOVERY 05:24 0.0 0.0 70 . 151/ 70 . . Electronically signed by : Earl Collins MD 01/12/2022 19:29:03
--- NOTE | 2022-01-12 08:10 | HMH.ITSHM ---
Current Home Medications as stated by this patient Mckinley Neumann or sales representative electric service. []NITRO METOPROLOL METFORMIN LOSARTAN ISOSORBIDE GABAPENTIN FUROSEMIDE EVOLOCUMAB EMPAGLIFLOZIN CLOPIDOGREL ASA
== END ==
LOC: RAD 06:16
PROVIDERS: PCP Family Medicine; Visit Provider Physician Assistant
DX: I25.118 Atherosclerotic heart disease of native coronary artery with other forms of angina pectoris (principal); R06.00 Dyspnea, unspecified; I10 Essential (primary) hypertension; E78.2 Mixed hyperlipidemia; I73.9 Peripheral vascular disease, unspecified; R60.0 Localized edema; Z95.5 Presence of coronary angioplasty implant and graft
CPT/HCPCS: 78452; 93017; A9502

== ENCOUNTER → 2022-01-19 08:58 | Outpatient (CLI) | payer OTHER, SELFPAY ==
[2022-01-19 09:20] LABS: Basophils # 0.1 K/mm3 (0-0.2); Basophils % 1.5 % (0.1-2.0); Eosinophils # 0.2 K/mm3 (0.0-0.4); Eosinophils % 2.3 % (0.1-12.0); Hemoglobin 16.9 g/dL (14.1-18.0); Lymphocytes # 2.4 K/mm3 (0.7-4.5); Lymphocytes % 30.4 % (10-50); Mean Corpuscular HGB Conc 33.9 g/dL (31.8-35.4); Mean Corpuscular Volume 88.6 fl (80-94); Monocytes # 0.5 K/mm3 (0.1-1.0); Monocytes % 6.2 % (1.7-9.3); Neutrophils # 4.8 K/mm3 (1.8-7.8); Neutrophils % 59.5 % (37.0-80.0); Platelet Count 241 K/mm3 (142-424); Red Blood Count 5.64 M/mm3 (4.60-6.20); Red Cell Distribution Width 13.9 % (11.5-17.5)
[2022-01-19 10:24] LABS: Anion Gap 11.5 mEq/L (5-15); Blood Urea Nitrogen 15 mg/dl (9-20); Calcium 9.3 mg/dl (8.4-10.2); Carbon Dioxide 28 mmol/L (22.0-30.0); Chloride 103 mmol/L (98-107); Estimated Glomerular Filt Rate 68 ml/min (>60); GFR (African American) 83 ML/MIN (>60); Glucose 143 mg/dl (74-100); Potassium 4.5 mmoL/L (3.5-5.1); Sodium 138 mmol/L (136-145)
== END ==
LOC: LAB 08:59
PROVIDERS: PCP Family Medicine; Visit Provider Physician Assistant
DX: Z11.52 Encounter for screening for COVID-19 (principal); Z01.812 Encounter for preprocedural laboratory examination; R06.00 Dyspnea, unspecified; I25.10 Atherosclerotic heart disease of native coronary artery without angina pectoris; I10 Essential (primary) hypertension; E78.5 Hyperlipidemia, unspecified; R94.30 Abnormal result of cardiovascular function study, unspecified; I73.9 Peripheral vascular disease, unspecified; J44.9 Chronic obstructive pulmonary disease, unspecified; R60.0 Localized edema; Z95.5 Presence of coronary angioplasty implant and graft
CPT/HCPCS: 36415; 80048; 83735; 85025; C9803; U0003; U0005

== ENCOUNTER 2022-01-21 08:43 | Day surgery (SDC) | payer OTHER, SELFPAY ==
[2022-01-21] VITALS (13 sets, daily range): BP systolic 88–150; BP diastolic 56–81; PULSE 59–75; RESP 18–20; TEMP 36.6; O2SAT 92–97; BMI 29.2
--- NOTE | 2022-01-21 | IR_ITS ---
APPROVED REPORT Patient Location: Outpatient Software Development Leader: FLOR Hoffman RT (R) PROCEDURES Left heart catheterization Left ventriculogram Selective coronary angiogram Catheter placed in the left subclavian artery with left internal mammary angiography Informed consent was obtained prior to the procedure. COMPLICATIONS None Estimated Blood Loss: Less than 10mls TECHNIQUE One percent lidocaine used to anesthetize the right anterior aspect of the wrist. The right radial artery was accessed via the Seldinger technique. A 6 Japanese sheath was placed in the right radial artery. 2.5 mg of verapamil, 800 mcg of nitroglycerin, 1mg Lidocaine and 5000 U Heparin were given through the arterial sheath. The papa catheter was also used to perform left heart catheterization, left ventriculogram and selective coronary angiogram. The JR4 catheter was used to perform left subclavian angiography with indirect left internal mammary angiography at the end of the procedure the sheath was removed good hemostasis was achieved using Traclet band, patient was transferred to the postop holding area in stable condition. ANGIOGRAPHIC RESULTS The left main artery Has a stent in the ostial segment which extends throughout its entire course. The stent itself is widely patent The left anterior descending artery Has a stent off the left main artery which has an ostial proximal concentric 70 to 80% stenosis The circumflex artery Is nondominant has a bifurcating stent of the left main artery which has an ostial 90% stenosis. This supplies a large first obtuse marginal artery The right coronary artery Is a dominant vessel and has stents in the proximal through mid segment which has 50% then 70% in-stent restenosis. The CAST ventriculogram reveals Normal 65% The left ventricular end-diastolic pressure 10 mmHg Left subclavian and left internal mammary arteries are widely patent IMPRESSION Severe three-vessel coronary artery disease accompanied by normal ejection fraction normal left ventricular end-diastolic pressure PLAN 1. Referral to [facility] for bypass surgery 2. Continue risk factor modification 3. Consider evaluating peripheral artery disease following bypass surgery. At this point the pressing issue is coronary artery bypass surgery Electronically signed by : King Mosqueda MD 01/21/2022 09:50:32
== END 2022-01-21 13:36 | disposition home or self-care (01) ==
LOC: CATHLAB 08:44
PROVIDERS: PCP Family Medicine; Visit Provider Internal Medicine
DX: I25.118 Atherosclerotic heart disease of native coronary artery with other forms of angina pectoris (principal); Z95.5 Presence of coronary angioplasty implant and graft; T82.855A Stenosis of coronary artery stent, initial encounter; E11.9 Type 2 diabetes mellitus without complications; Z79.84 Long term (current) use of oral hypoglycemic drugs; Z79.899 Other long term (current) drug therapy; Z82.49 Family history of ischemic heart disease and other diseases of the circulatory system; I70.213 Atherosclerosis of native arteries of extremities with intermittent claudication, bilateral legs; I10 Essential (primary) hypertension; Y83.1 Surgical operation with implant of artificial internal device as the cause of abnormal reaction of the patient, or of later complication, without mention of misadventure at the time of the procedure; Z87.891 Personal history of nicotine dependence
CPT/HCPCS: 93458; 93459; 99152; C1725; C1769; J1644; Q9967

== ENCOUNTER → 2022-02-10 17:15 | Outpatient (CLI) | payer OTHER, SELFPAY | PROVIDERS: PCP Family Medicine | DX: Z01.812 Encounter for preprocedural laboratory examination (principal); Z11.52 Encounter for screening for COVID-19; I25.10 Atherosclerotic heart disease of native coronary artery without angina pectoris | CPT/HCPCS: C9803; U0003; U0005 ==

== ENCOUNTER → 2022-05-18 07:55 | Outpatient (CLI) | payer OTHER, SELFPAY ==
--- NOTE | 2022-05-18 | CA_ITS ---
APPROVED REPORT EXAM: Comprehensive 2D, Doppler, and color-flow Echocardiogram Senior Logistics Manager: ePnny Segundo RT(R) Ht: 5 ft 11 in Wt: 196lbs BSA: 2.09 BP: 125/82 mmHg Indications: ex smoker, HTN, DM, edema, SOB, hyperlipidemia, 7 cardiac stents, 4 peripheral stents, CAD, CABG 02/11. 2D Dimensions Aortic Root 2.00 cm M: 3.1 - 3.7 LA Volume 30.80 mL LA Volume Index 14.73 mL/m2 (M/F) 16-34 M-Mode Dimensions RVDd 2.43 cm (0.9-2.6) LA Diam 4.48 cm (1.9-4.0) LVDd 4.90 cm (3.5-5.7) Ao Diam 3.34 cm (2.0-3.7) LVDs 4.01 cm (3.5-5.7) IVSd 0.89 cm (0.6-1.1) PWd 0.72 cm (0.6-1.1) EF (Teich) 37.60% FS 18.20% EDV (Teich) 112.80 mL ESV (Teich) 70.40 mL LV Diastology E Decel Time 227.00 (160-240 msec) E/A Ratio 0.84 MED E' 7.20 (< 7 cm/sec) E'/MED E' Ratio 9.35 (>14) LAT E' 11.60 (<10 cm/sec) E/LAT E' Ratio 5.80 (>14) Mitral Valve MV A Velocity 80.00 (40-130 cm/s) E/A Ratio 0.84 MV Decel. Time 227.00 (160-240 ms) Left Ventricle Technically difficult study because of the patient factors and poor acoustic windows. Left atrium is mildly enlarged, left ventricle is normal size mild concentric left ventricular hypertrophy, estimated ejection fraction 50% with no obvious regional wall motion abnormality in the visualized segments. Grade 1 diastolic dysfunction seen without tissue Doppler evidence of raise left atrial pressure. Right Ventricle Right atrium and right ventricle are mildly enlarged with normal contractility. Aortic Valve Aortic valve is thickened and calcified without aortic stenosis or aortic insufficiency. Mitral Valve Mitral valve grossly normal, there is trace mitral regurgitation. Tricuspid Valve Tricuspid grossly normal, there is trace tricuspid regurgitation, tricuspid regurgitation jet velocity is inadequate for calculation of the right ventricular systolic pressure. Pulmonic Valve Pulmonic valve is poorly visualized. Great Vessels Aortic root is normal size. Inferior vena cava is poorly visualized. Pericardium No significant pericardial effusion noted. Conclusion 1. Mild biatrial enlargement, normal left ventricular size, estimated ejection fraction 50% with no regional wall motion abnormality in the visualized segments, endocardial surfaces are poorly visualized. Grade 1 diastolic dysfunction seen without tissue Doppler evidence of raise left atrial pressure. 2. Mildly enlarged right ventricle with normal contractility. 3. Trace mitral and tricuspid regurgitation. 4. No significant pericardial effusion noted. Electronically signed by : Earl Collins MD 05/18/2022 19:04:35
== END ==
PROVIDERS: PCP Family Medicine; Visit Provider Nurse Practitioner Family
DX: R06.02 Shortness of breath (principal); I10 Essential (primary) hypertension
CPT/HCPCS: 93306

== ENCOUNTER → 2022-08-17 11:43 | Outpatient (CLI) | payer OTHER, SELFPAY ==
--- NOTE | 2022-08-17 11:51 | XR_ITS ---
FINAL REPORT CLINICAL HISTORY: MIDLINE LOW BACK PAIN FINDINGS: 4 views were obtained. There is no acute fracture. There is no malalignment. There are mild degenerative changes with osteophytes. There is diffuse vascular calcification. Iliac artery stents are present. IMPRESSION: Mild degenerative change. Reviewed, Interpreted and Dictated by Jose Berry III, MD Transcribed by Everardo Saul Authenticated and [facility]
--- NOTE | 2022-08-17 11:52 | XR_ITS ---
FINAL REPORT CLINICAL HISTORY: MIDLINE LOW BACK PAIN FINDINGS: SACRUM COCCYX 3 views demonstrate no acute fracture or dislocation. The sacral arches are intact. The sacroiliac joints are unremarkable. Iliac artery stents are present. IMPRESSION: No acute process. Reviewed, Interpreted and Dictated by Jose Berry III, MD Transcribed by Everardo Saul Authenticated and [facility]
== END ==
PROVIDERS: PCP Family Medicine; Visit Provider Physician Assistant
DX: M54.42 Lumbago with sciatica, left side (principal)
CPT/HCPCS: 72110; 72220

== ENCOUNTER → 2022-08-26 07:17 | Outpatient (CLI) | payer OTHER, SELFPAY ==
--- NOTE | 2022-08-26 07:41 | MR_ITS ---
FINAL REPORT CLINICAL HISTORY: ACUTE MIDLINE LOW BACK PAIN. LOW BACK PAIN WORSE WHEN SITTING. LEFT LEG NUMBNESS. FINDINGS: Multiplanar MR imaging of the lumbar spine was performed without contrast. On the sagittal T2-weighted images, disc degeneration is seen at several levels. The vertebral alignment is normal. There is no evidence of fracture. No bony mass is identified. The conus has an unremarkable appearance. L1-2: There is no significant canal stenosis or neural foraminal narrowing. L2-3: There is no significant canal stenosis or neural foraminal narrowing. L3-4: There is an annular bulge and facet arthropathy. There is mild bilateral neural foraminal narrowing. There is mild central canal stenosis with an AP thecal sac diameter of 9 mm. L4-5: A small central disc protrusion is present. There is mild bilateral neural foraminal narrowing. L5-S1: An annular bulge is present. There is a right paracentral superiorly extruded disc with right lateral recess stenosis. There is right S1 nerve root impingement. There is moderate right and mild left neural foraminal narrowing. IMPRESSION: Right paracentral superiorly extruded disc at L5-S1 results in right lateral recess stenosis and right S1 nerve root impingement. Small central disc protrusion at L4-L5. Multiple other levels of degenerative disc disease and neural foraminal narrowing. Reviewed, Interpreted and Dictated by Jose Berry III, MD Transcribed by Everardo Saul Authenticated and [facility]
== END ==
LOC: RAD 07:18
PROVIDERS: PCP Family Medicine; Visit Provider Physician Assistant
DX: M54.42 Lumbago with sciatica, left side (principal)
CPT/HCPCS: 72148; 76376

== ENCOUNTER → 2023-02-03 15:14 | Outpatient (CLI) | payer OTHER, SELFPAY ==
--- NOTE | 2023-02-03 15:18 | CT_ITS ---
FINAL REPORT CLINICAL HISTORY: H/O TOBACCO USE QUIT SMOKING 7 YRS AGO, SMOKED 3-4 PKS PER DAY X 42 YRS COPD, CAD COMPARISON: 07/30/2020 FINDINGS: Axial images were obtained from the lung apex to the mid abdomen by computed tomography. Low-dose protocol was utilized. CTDl vol(mGy): 2.9 DLP (mGy-cm): 109.42 FINDINGS: The patient is status post median sternotomy. There is no mediastinal or hilar mass. No axillary mass is seen. The heart size is normal. There is no pericardial or pleural effusion. Lung window images demonstrate no suspicious infiltrate or nodule. There are multiple calcified granulomas. There is mild emphysema. Mild scarring is noted. Limited images of the upper abdomen demonstrate mild fatty infiltration of the liver. IMPRESSION: Lung RADS category 1. Recommend 12 month follow-up low-dose chest CT. Reviewed, Interpreted and Dictated by Jose Berry III, MD Transcribed by Kimberly Kapadia Authenticated and [facility]
== END ==
PROVIDERS: PCP Family Medicine; Visit Provider Family Medicine
DX: Z87.891 Personal history of nicotine dependence (principal); Z12.2 Encounter for screening for malignant neoplasm of respiratory organs
CPT/HCPCS: 71271

== ENCOUNTER 2024-01-25 18:33 | Emergency (ER) | payer OTHER, SELFPAY ==
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
[2024-01-25 18:52] VITALS: BP 169/78; PULSE 95; RESP 20; TEMP 36.7; O2SAT 98; BMI 28.4
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
[2024-01-25 20:04] VITALS: BP 169/78; PULSE 95; RESP 20; TEMP 36.7; O2SAT 98
== END 2024-01-25 20:05 | disposition home or self-care (01) ==
PROVIDERS: Emergency Provider Nurse Practitioner; PCP Family Medicine
DX: S20.219A Contusion of unspecified front wall of thorax, initial encounter (principal); Z87.891 Personal history of nicotine dependence; W50.0XXA Accidental hit or strike by another person, initial encounter
CPT/HCPCS: 71046; 71120; 99204; 99212; G0463

== ENCOUNTER 2024-03-04 11:49 | Day surgery (SDC) | payer OTHER, SELFPAY ==
[2024-02-29 10:54] VITALS: BMI 60.8
[2024-03-04] VITALS (9 sets, daily range): BP systolic 119–157; BP diastolic 58–83; PULSE 80–92; RESP 16–18; TEMP 36.2–36.4; O2SAT 95–99; BMI 27.6
[2024-03-04] MEDS: LACTATED RINGERS 1000ML 1,000 ML 25 ML IV (12:24)
[2024-03-04 12:25] LABS: Basophils # 0.1 K/mm3 (0-0.2); Basophils % 1.6 % (0.1-2.0); Eosinophils # 0.2 K/mm3 (0.0-0.4); Eosinophils % 2.9 % (0.1-12.0); Hematocrit 50.8 % (42.0-52.0); Hemoglobin 16.6 g/dL (14.1-18.0); Lymphocytes # 2.6 K/mm3 (0.7-4.5); Lymphocytes % 30.8 % (10-50); Mean Corpuscular HGB Conc 32.7 g/dL (31.8-35.4); Mean Corpuscular Hemoglobin 29.7 pg (27.0-31.2); Mean Corpuscular Volume 90.7 fl (80-94); Mean Platelet Volume 7.8 fl (7.4-10.4); Monocytes # 0.5 K/mm3 (0.1-1.0); Monocytes % 5.7 % (1.7-9.3); Platelet Count 218 K/mm3 (142-424); Red Cell Distribution Width 13.4 % (11.5-17.5); White Blood Count 8.4 K/mm3 (4.8-10.8)
[2024-03-04 12:27] LABS: Chloride 106 mmol/L (98-107); Sodium 135 mmol/L (136-145)
[2024-03-04 12:28] LABS: Potassium 4.2 mmoL/L (3.5-5.1)
[2024-03-04 12:30] LABS: Blood Urea Nitrogen 19 mg/dl (9-20)
[2024-03-04 12:31] LABS: Anion Gap 12.2 mEq/L (5-15); Calcium 9.2 mg/dl (8.4-10.2); Carbon Dioxide 21 mmol/L (22.0-30.0); Creatinine Clearance Estimated 97 mL/min (50-200); Estimated Glomerular Filt Rate 76 ml/min (>60); GFR (African American) 92 ML/MIN (>60); Glucose 122 mg/dl (74-100)
--- NOTE | 2024-03-04 12:35 | P.PNANES_ITS ---
[facility] Disclaimer: The information contained in this section may have been updated after the patient was seen, as this information can be updated by other users. Medical History Gynecomastia Leg cramps SOB (shortness of breath) on exertion Angina pectoris Surgical History Hx of CABG History of colonoscopy Family History Mother Family history of hyperlipidemia Other Family history of diabetes mellitus type II Family history of hypertension Social History Smoking Status: Former smoker tobacco type: smokeless tobacco second hand exposure: No alcohol intake: never substance use type: denies use current occupational status: unemployed Travel in the last 8 weeks: Inside the [place] household members: spouse housing: house caffeine: Yes [facility] Anesthesia Checklist Patient Identification Patient Identification: Arm Band and Verbal (Name & ) Structural Data Admitted From: Home Planned Operative Procedure/s: I & D pilonidal cyst Consent for Planned Operative Procedure(s) Verified: Yes Verified Documents: Surgical Consent NPO Status Verified Time NPO: 00:00 Chart Verification Results Verified: CBC and BMP Additional verifications Anesthesia Reactions: No Hx Blood Transfusions: No Blood Transfusion Reaction: No Airway Assessment Mallampati Score:: Class II C-Spine Mobility Assessed: Yes TMJ Mobility Assessed: Yes Dentition: Edentulous Neurological Assessment Level of Consciousness: Awake Hx Seizures: No Numbness or tingling in extremities: No Anesthesia Plan Anesthesia Risk discussed: Yes Anesthesia Plan: Verified ASA Class: III Anesthesia Type: General
[2024-03-04 12:36] LABS: POC Glucose,Bedside 113 (70-110)
[2024-03-04] MEDS: CEFAZOLIN SODIUM 2 GM in 0.9 % SODIUM CHLORIDE 100 ML IV (13:15)
[2024-03-04] MEDS: ROPIVACAINE 0.5% 30ML VIAL 150 MG (13:31)
[2024-03-04] MEDS: LIDOCAINE 1% 20ML MDV 20 ML (13:31)
--- NOTE | 2024-03-04 14:14 | P.OP_ITS ---
Date of procedure: 03/04/24 Pre-op Diagnosis:: Probable pilonidal cyst Post-op Diagnosis:: Complex extensive perirectal fistula Procedure performed:: Unroofing and partial excision complex perirectal fistula Surgeon:: Jose Luciano MD CODING EDUCATOR:: Shad Romero Anesthesia: GETA Estimated blood loss (mL): 10 Clinical Note:: Patient presents for incision and debridement of presumed pilonidal cyst. He has had a problematic area near his tailbone for quite some time. I saw him in the office on 08/03/2023 for this problem. At that time he had an area to the left of the midline in the post coccygeal region near the tailbone with some punctate granulation tissue. When he followed up in the office on 08/17/2023 he had improvement with resolution of cellulitis and scar at the site of granulation tissue. Plan was for recheck in about 3 months. That was over 6 months ago. He states that he has had problems since November of this year with intermittent bloody drainage and purulent discharge. He states that it was significant last week. He was seen in the office on 02/28/2023 and had an area of scar tissue with punctate drainage in the coccygeal region slightly to the left of the midline with some purulent drainage consistent with pilonidal cyst with abscess. Interestingly there was no evidence of any midline pilonidal sinus openings. Options were discussed with the patient. Plan was made for incision and unroofing of this area with debridement. He was placed on antibiotics. After several days of antibiotics he did have improvement in the drainage and discharge. . Operative findings:: There is a tiny punctate area of scar tissue in the coccygeal region to the left of the midline with a fistulous sinus opening. Probing actually revealed extensive sinus tract (fistula) ultimately extending down to the posterior midline slightly to the left internal perianal versus perirectal fistula opening. Operative note:: Consent was obtained and patient was taken to the operating room. General anesthesia was induced. He was repositioned in prone jackknife position. The area was prepped and draped. There was a small area of scar tissue in the post coccygeal region slightly to the left of the midline near the gluteal cleft. This was probed with a blunt probe. It did seem to extend for quite some distance. Using a 6 mm punch biopsy punch biopsy was performed of the skin. With traction dissection was then carried down around this and there was noted to be a clear fistula tract. This was excised using scissor dissection for several centimeters. There was not noted to be any communication to the skin consistent with pilonidal cyst formation. Ultimately it was noted that the fistula tract carried down to the left posterior midline anorectal region where there was noted to be some purulent discharge. The fistula tract was excised as much as feasible and sent off as a specimen. The wound was irrigated. Local anesthetic was infiltrated. Wound was packed with half-inch plain packing gauze. Digital examination inspection after dressing applied revealed internal fistula opening in the left posterior midline. Patient likely will need rectal exam under anesthesia after prepping and potential colorectal referral. . Condition: stable Disposition: PACU Complications:: None immediately apparent
--- NOTE | 2024-03-04 14:20 | P.PNANES_ITS ---
[facility] Anesthesia Record Part I Anesthesia Record I Intake, IV Amount: 1,000 Hydration: Adequate Estimated blood loss (mL): 5 Urine output (mL): 0 Blood Pressure: 129/61 SaO2: 96 Pulse Rate: 87 Airway Patency: Patent Respiratory Rate: 16 Temperature: 97.5 F Patient is:: Drowsy and Oral/Nasal airway Stable to PACU at:: 14:15
[2024-03-04 14:30] LABS: POC Glucose,Bedside 111 (70-110)
--- NOTE | 2024-03-05 07:08 | P.PNANES_ITS ---
[facility] Anesthesia Record Part II Anesthesia Record Part II Discharge Time: 14:44 Destination: Surgical Day Care (OP Surgery) PACU nurse assessment reviewed?: Yes Patient Condition:: Good Anesthesia Complications:: None Swallowing reflex intact?: Yes Airway Patency: Patent Cyanosis?: No Blood Pressure: 157/68 SaO2: 96 Respiratory Rate: 16 Pulse Rate: 91 Temperature: 97.2 F Mental Status: Alert & Oriented Pain level:: 0 Nausea and/or vomitting:: None Intake, IV Amount: 0 Hydration: Adequate
[2024-03-05 07:09] VITALS: BP 157/68; PULSE 91; RESP 16; TEMP 36.2; O2SAT 96
== END 2024-03-04 15:18 | disposition home or self-care (01) ==
PROVIDERS: PCP Family Medicine; Visit Provider Surgery
PROC: (CPT 46040; principal; 2024-03-04 13:25)
DX: K60.4 Rectal fistula (principal)
CPT/HCPCS: 46040; 80048; 82962; 85025; 96374; J0690

== ENCOUNTER 2024-03-15 07:55 | Outpatient (CLI) | payer OTHER, SELFPAY ==
--- NOTE | 2024-03-15 08:12 | ECG_ITS ---
APPROVED REPORT Exam: Resting ECG HR:72 bpm ECG Measurements Heart Rate 72 AXES WV 142 P 72 QRSd 97 QRS 122 QT 385 T -7 QTc 409 Conclusion SINUS RHYTHM INCOMPLETE RIGHT BUNDLE BRANCH BLOCK [90+ ms QRS DURATION, TERMINAL R IN V1/V2, 40+ ms S IN I/aVL/V4/V5/V6] POSSIBLE RIGHT VENTRICULAR HYPERTROPHY [SOME/ALL OF: PROMINENT R IN V1, LATE TRANSITION, RAD, JENNY, SSS] NONSPECIFIC T-WAVE ABNORMALITY ABNORMAL ECG UNCONFIRMED REPORT Electronically signed by : Dale Blankenship MD 03/16/2024 08:30:44
[2024-03-15 08:18] LABS: Basophils # 0.2 K/mm3 (0-0.2); Basophils % 1.7 % (0.1-2.0); Eosinophils # 0.2 K/mm3 (0.0-0.4); Eosinophils % 2.4 % (0.1-12.0); Hematocrit 50.4 % (42.0-52.0); Hemoglobin 17.3 g/dL (14.1-18.0); Lymphocytes # 2.5 K/mm3 (0.7-4.5); Lymphocytes % 25.4 % (10-50); Mean Corpuscular HGB Conc 34.4 g/dL (31.8-35.4); Mean Corpuscular Hemoglobin 30.8 pg (27.0-31.2); Mean Corpuscular Volume 89.5 fl (80-94); Mean Platelet Volume 7.6 fl (7.4-10.4); Monocytes # 0.4 K/mm3 (0.1-1.0); Monocytes % 4.5 % (1.7-9.3); Neutrophils # 6.4 K/mm3 (1.8-7.8); Platelet Count 233 K/mm3 (142-424); Red Blood Count 5.63 M/mm3 (4.60-6.20); Red Cell Distribution Width 13.8 % (11.5-17.5); White Blood Count 9.7 K/mm3 (4.8-10.8)
[2024-03-15 09:39] LABS: Chloride 103 mmol/L (98-107); Potassium 4.4 mmoL/L (3.5-5.1); Sodium 137 mmol/L (136-145)
[2024-03-15 09:42] LABS: Blood Urea Nitrogen 16 mg/dl (9-20); Estimated Glomerular Filt Rate 76 ml/min (>60); GFR (African American) 92 ML/MIN (>60)
[2024-03-15 09:43] LABS: Anion Gap 12.4 mEq/L (5-15); Calcium 9.6 mg/dl (8.4-10.2); Carbon Dioxide 26 mmol/L (22.0-30.0); Glucose 131 mg/dl (74-100)
== END 2024-03-15 23:59 | disposition home or self-care (01) ==
LOC: LAB 07:56
PROVIDERS: Surgery; PCP Family Medicine; Visit Provider Colon & Rectal Surgery
DX: L05.91 Pilonidal cyst without abscess (principal)
CPT/HCPCS: 36415; 80048; 85025; 93005